=== PATIENT | female | born 1995 | race African-American/Black ===

== ENCOUNTER 2016-11-06 17:10 | Emergency (ER) | payer MEDICAID ==
[2016-11-06 17:21] VITALS: BP 131/84
--- NOTE | 2016-11-06 17:39 | EDM.PDOC ---
ED HPI GENERAL MEDICAL PROBLEM - General Chief Complaint: Upper Extremity Injury/Pain Stated Complaint: RIGHT HAND UNABLE TO MOVE IT Time Seen by Provider: 11/06/16 17:29 Source of Information: Reports: Patient History Limitations: Reports: No Limitations - History of Present Illness INITIAL COMMENTS - FREE TEXT/NARRATIVE: 21-year-old female presents for evaluation and treatment of injury to the right thumb. Patient reports prior to arrival in the ER she was wrestling. She states that the gentleman she was wrestling with accidentally hit her thumb and she heard a pop. She states since then she's had extreme pain in the right thumb with swelling at the base of the thumb. She is unable to move the thumb due to pain. She has tried Tylenol at home but continues to have pain and discomfort. Patient is right-handed. Onset: Today Location: Reports: Upper Extremity, Right Right Hand Pain Score (Numeric/FACES): 9 - Related Data Allergies Allergy/AdvReac Type Severity Reaction Status Date / Time No Known Allergies Allergy Verified 04/19/16 14:31 Home Meds: Home Meds . 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 History: Dermatologic History: Reports: Other (See Below) Other Dermatologic History: cyst to groin - Past Surgical History Female Surgical History: Reports: Other (See Below) Other Female Surgeries/Procedures: at age 14 Social & Family History - Tobacco Use Smoking Status *Q: Current Every Day Smoker Years of Tobacco use: 3 Packs/Tins Daily: 0.5 - Caffeine Use Caffeine Use: Reports: Energy Drinks, Soda, Tea - Recreational Drug Use Recreational Drug Use: No - Living Situation & Occupation Living situation: Reports: Single, Alone Occupation: Employed Review of Systems - Review of Systems Review Of Systems: See Below Musculoskeletal: Reports: Hand Pain (right thumb), Joint Swelling (right MCP joint), Other (decreased ROM to the right thumb) Skin: Denies: Wound Trauma Exam - Physical Exam Exam: See Below Exam Limited By: No Limitations General Appearance: Reports: Alert, WD/WN, No Apparent Distress Respiratory Exam: Reports: No Respiratory Distress Cardiovascular: Reports: Normal Peripheral Pulses (2+ radial pulses biltarally) , Regular Rate, Rhythm Extremities: Pain with Movement (unable to test ROM due to pain to the right thumb; able to oppose fingers to thumb but has significant pain), Tenderness ( right 1st metacarpal), Other (swelling to the right thumb base) Neurologic: Reports: Alert, Normal Mood/Affect Skin: Reports: Normal Color, Warm/Dry ED TRAUMA EXTREMITY PROCEDURES - Splinting Right Upper Extremity Splint site: right hand and wrist Pre-procedure NV status: normal Post-procedure NV status: normal Splint material: other (orthoglass) Splint design: thumb spica Applied & form fitted by: provider, nurse Provider post-splint application NV check: NV status normal, good position Complications: No Course - Vital Signs Last Recorded V/S: Last Vital Signs Temp 36.8 C 11/06/16 17:19 Pulse 90 11/06/16 17:19 Resp 20 11/06/16 17:19 BP 131/84 11/06/16 17:19 Pulse Ox 100 11/06/16 17:19 - Orders/Labs/Meds Orders: Active Orders 24 hr Category Date Time Status Hand Comp Min 3V Rt [CR] Stat Exams 11/06/16 17:34 Taken - Radiology Interpretation Free Text/Narrative:: xray of the right hand shows ano acute fractures or dislocations. - Re-Assessments/Exams Free Text/Narrative Re-Assessment/Exam: 11/06/16 18:13 I discussed x-ray results with the patient. I feel she likely has a gamekeeper' s thumb. We will put her in thumb spica splint. Discharge instructions as documented. Departure - Departure Time of Disposition: 18:22 Disposition: Home, Self-Care 01 Condition: fair Clinical Impression: Gamekeeper's thumb of right hand - Discharge Information Instructions: Ulnar Collateral Ligament Injury of the Thumb Referrals: PCP,None [Primary Care Provider] - Blaise Flores MD [Physician] - Cristina Hare PA-C [Physician Wet Roller] - Forms: ED Department Discharge Additional Instructions: Wear the splint at all times. Cover when in the shower or exposed to water with plastic bag or seran wrap. [id number] ibuprofen 600 mg every 6 to 8 hours as needed for pain and swelling. Ice the area, even over the splint, for about 30 minutes 3 or 4 times a day. Follow-up with Orthopedics in one to [address] Blanca. Please call [phone] to schedule with him. For your general medical care I recommend family practice. I recommend Brit Guallpa. Please call [phone] to schedule with her. Please return to the ER should your symptoms change or worsen. - My Orders Last 24 Hours: My Active Orders 11/06/16 17:34 Hand Comp Min 3V Rt [CR] Stat - Assessment/Plan Last 24 Hours: My Active Orders 11/06/16 17:34 Hand Comp Min 3V Rt [CR] Stat
--- NOTE | 2016-11-08 08:18 | CR ---
Right hand: Four views of the right hand were obtained. Comparison: No previous hand study. Joint spaces are maintained. No fracture, dislocation or other bony abnormality is seen. Impression: 1. No abnormality is identified on right hand exam. Diagnostic code #1
== END 2016-11-06 18:40 | disposition home or self-care (01) ==
LOC: JD.ED 17:10
DX: S63.641A Sprain of metacarpophalangeal joint of right thumb, initial encounter (principal); F17.210 Nicotine dependence, cigarettes, uncomplicated; W22.8XXA Striking against or struck by other objects, initial encounter; Y93.72 Activity, wrestling
CPT/HCPCS: 29125; 73130-26-RT; 73130-RT; 99283; 99283-25

== ENCOUNTER 2016-12-08 15:18 | Emergency (ER) | payer MEDICAID ==
[2016-12-08 15:49] VITALS: BP 133/86
[2016-12-08] MEDS ORDERED: Sodium Chloride 0.9% 10 ML Syringe FLUSH PRN (16:15)
[2016-12-08] MEDS ORDERED: Ketorolac 30 MG/ML SDV IVPUSH ONE (16:15)
[2016-12-08] MEDS ORDERED: Sodium Chloride 0.9% 1,000 ML IV ONE (16:15)
--- NOTE | 2016-12-08 16:17 | EDM.PDOC ---
ED HPI GENERAL MEDICAL PROBLEM - General Chief Complaint: Flank Pain Stated Complaint: R SIDE ABDOMINAL PAIN Time Seen by Provider: 12/08/16 16:00 Source of Information: Reports: Patient History Limitations: Reports: No Limitations - History of Present Illness INITIAL COMMENTS - FREE TEXT/NARRATIVE: 21-year-old female presents for evaluation treatment of right-sided flank pain. Patient reports that the flank pain started 3 days ago. She states that is progressively gotten worse. Patient reports at its worst the pain as a 10 out of 10. She reports associated symptoms of the decreased appetite, fatigue and one episode of emesis. Patient states that she tried tramadol and ibuprofen without any symptom relief. She denies any fevers, nausea, dysuria, hematuria, melena or hematochezia. She reports that her last bowel movement was today. She started her menstrual cycle yesterday. Patient reports that she has a history of kidney stones and kidney infection. Last kidney stone was about 2 years ago. 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 History: Dermatologic History: Reports: Other (See Below) Other Dermatologic History: cyst to groin - Past Surgical History Female Surgical History: Reports: Other (See Below) Other Female Surgeries/Procedures: at age 14 Social & Family History - Tobacco Use Smoking Status *Q: Current Every Day Smoker Years of Tobacco use: 3 Packs/Tins Daily: 0.5 - Caffeine Use Caffeine Use: Reports: Coffee, Energy Drinks, Soda, Tea - Recreational Drug Use Recreational Drug Use: No - Living Situation & Occupation Living situation: Reports: Single, Alone Occupation: Employed ED ROS GENERAL - Review of Systems Review Of Systems: See Below Constitutional: Reports: Fatigue, Decreased Appetite. Denies: Fever GI/Abdominal: Denies: Abdominal Pain, Nausea : Reports: Flank Pain (right), Other (currently on menstrual cycle). Denies: Dysuria, Hematuria ED EXAM, RENAL/ - Physical Exam Exam: See Below Exam Limited By: No Limitations General Appearance: Alert, WD/WN, No Apparent Distress Respiratory/Chest: No Respiratory Distress, Lungs Clear, Normal Breath Sounds Cardiovascular: Normal Peripheral Pulses, Regular Rate, Rhythm, No Murmur GI/Abdominal: Normal Bowel Sounds, Soft, Non-Tender Back Exam: Normal Inspection, CVA Tenderness (R). No: CVA Tenderness (L) Neurological: Alert, Oriented, Normal Cognition Psychiatric: Normal Affect, Normal Mood Skin Exam: Warm, Dry, Normal Color Course - Vital Signs Last Recorded V/S: Last Vital Signs Temp 37.0 C 12/08/16 15:48 Pulse 88 12/08/16 15:48 Resp 20 12/08/16 15:48 BP 133/86 12/08/16 15:48 Pulse Ox 100 12/08/16 15:48 - Orders/Labs/Meds Orders: Active Orders 24 hr Category Date Time Status Peripheral IV Care [RC] . DIRECTED Care 12/08/16 16:15 Active Peripheral IV Insertion Adult [OM.PC] Routine Oth 12/08/16 16:15 Ordered Labs: Laboratory Tests 12/08/16 12/08/16 12/08/16 Range/Units 16:05 16:05 16:53 WBC 5.38 (3.98-10.04) K/mm3 RBC 4.39 (3.98-5.22) M/mm3 Hgb 13.2 (11.2-15.7) gm/L Hct 39.4 (34.1-44.9) % MCV 89.7 (79.4-94.8) fl MCH 30.1 (25.6-32.2) pg MCHC 33.5 (32.2-35.5) g/dl RDW Std Deviation 41.8 (36.4-46.3) fL Plt Count 292 (182-369) K/mm3 MPV 9.4 (9.4-12.3) fl Neutrophils % (Manual) 49 (40-60) % Band Neutrophils % 0 (0-10) % Lymphocytes % (Manual) 41 H (20-40) % Atypical Lymphs % 0 % Monocytes % (Manual) 4 (2-10) % Eosinophils % (Manual) 5 (0.7-5.8) % Basophils % (Manual) 1 (0.1-1.2) Platelet Estimate Adequate RBC Morph Comment Normal Sodium (136-145) mEq/L Potassium (3.5-5.1) mEq/L Chloride (98-107) mEq/L Carbon Dioxide (21-32) mEq/L Anion Gap (5-15) BUN (7-18) mg/dL Creatinine (0.55-1.02) mg/dL Est Cr Clr Drug Dosing Estimated GFR (MDRD) (>60) mL/min BUN/Creatinine Ratio (14-18) Glucose (74-106) mg/dL Calcium (8.5-10.1) mg/dL Total Bilirubin (0.2-1.0) mg/dL AST (15-37) U/L ALT (14-59) U/L Alkaline Phosphatase (46-116) U/L C-Reactive Protein (<1.0) mg/dL Total Protein (6.4-8.2) g/dl Albumin (3.4-5.0) g/dl Globulin gm/dL Albumin/Globulin Ratio (1-2) Urine Color Yellow (Yellow) Urine Appearance Clear (Clear) Urine pH 6.0 (5.0-8.0) Ur Specific Browns > or = 1.030 (1.005-1.030) Urine Protein Trace H (Negative) Urine Glucose (UA) Negative (Negative) Urine Ketones Negative (Negative) Urine Occult Blood 1+ H (Negative) Urine Nitrite Negative (Negative) Urine Bilirubin Negative (Negative) Urine Urobilinogen 0.2 (0.2-1.0) Ur Leukocyte Esterase Negative (Negative) Urine RBC 5-10 H (0-5) /hpf Urine WBC 0-5 (0-5) /hpf Ur Epithelial Cells 0-5 (0-5) /hpf Urine Bacteria Few (FEW) /hpf Urine Mucus Few (FEW) /hpf Urine HCG, Qual Negative (NEGATIVE) 12/08/16 Range/Units 16:53 WBC (3.98-10.04) K/mm3 RBC (3.98-5.22) M/mm3 Hgb (11.2-15.7) gm/L Hct (34.1-44.9) % MCV (79.4-94.8) fl MCH (25.6-32.2) pg MCHC (32.2-35.5) g/dl RDW Std Deviation (36.4-46.3) fL Plt Count (182-369) K/mm3 MPV (9.4-12.3) fl Neutrophils % (Manual) (40-60) % Band Neutrophils % (0-10) % Lymphocytes % (Manual) (20-40) % Atypical Lymphs % % Monocytes % (Manual) (2-10) % Eosinophils % (Manual) (0.7-5.8) % Basophils % (Manual) (0.1-1.2) Platelet Estimate RBC Morph Comment Sodium 142 (136-145) mEq/L Potassium 3.6 (3.5-5.1) mEq/L Chloride 105 (98-107) mEq/L Carbon Dioxide 26 (21-32) mEq/L Anion Gap 14.6 (5-15) BUN 9 (7-18) mg/dL Creatinine 0.8 (0.55-1.02) mg/dL Est Cr Clr Drug Dosing TNP Estimated GFR (MDRD) > 60 (>60) mL/min BUN/Creatinine Ratio 11.3 L (14-18) Glucose 96 (74-106) mg/dL Calcium 8.7 (8.5-10.1) mg/dL Total Bilirubin 0.3 (0.2-1.0) mg/dL AST 16 (15-37) U/L ALT 17 (14-59) U/L Alkaline Phosphatase 64 (46-116) U/L C-Reactive Protein < 0.2 (<1.0) mg/dL Total Protein 7.0 (6.4-8.2) g/dl Albumin 3.6 (3.4-5.0) g/dl Globulin 3.4 gm/dL Albumin/Globulin Ratio 1.1 (1-2) Urine Color (Yellow) Urine Appearance (Clear) Urine pH (5.0-8.0) Ur Specific Browns (1.005-1.030) Urine Protein (Negative) Urine Glucose (UA) (Negative) Urine Ketones (Negative) Urine Occult Blood (Negative) Urine Nitrite (Negative) Urine Bilirubin (Negative) Urine Urobilinogen (0.2-1.0) Ur Leukocyte Esterase (Negative) Urine RBC (0-5) /hpf Urine WBC (0-5) /hpf Ur Epithelial Cells (0-5) /hpf Urine Bacteria (FEW) /hpf Urine Mucus (FEW) /hpf Urine HCG, Qual (NEGATIVE) Meds: Medications Discontinued Medications Generic Name Dose Route Start Last Admin Trade Name Markq PRN Reason Stop Dose Admin Sodium Chloride 1,000 mls @ 999 mls/hr 12/08/16 16:15 12/08/16 16:40 Normal Saline IV 12/08/16 17:15 999 mls/hr ONETIME ONE Administration Ketorolac Tromethamine 30 mg 12/08/16 16:15 12/08/16 16:41 Toradol IVPUSH 12/08/16 16:16 30 mg ONETIME ONE Administration Sodium Chloride 10 ml 12/08/16 16:15 12/08/16 16:30 Saline Flush FLUSH 10 ml ASDIRECTED PRN Administration Keep Vein Open - Radiology Interpretation Free Text/Narrative:: CT of the pelvis without contrast impression per Dr. Carty 1. 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 Small nonobstructing 3 mm stone within the upper right kidney. 3. No ureteral dilation or ureteral calculi are seen. 3. Mild increased free fluid within the pelvis most likely due to nonvisualized adnexal cyst leakage/rupture. 4. Incidental scoliosis. - Re-Assessments/Exams Free Text/Narrative Re-Assessment/Exam: 12/08/16 17:34 Labs returned. White blood cell count 5.3, hemoglobin 13.2 and platelets are 292. Sodium 142, potassium 3.6 and chloride 105. Anion gap is 14.6. CRP is less than 0.2. Ua has 1+ blood and trace protein. Negative for leukocytes and nitrates. I discussed the lab results with the patient. I feel we should obtain a CT of the abdomen and pelvis to rule out stones as she has a history of stones and no signs of urinary tract infection today. She agrees to this. Reports good pain relief with the IV Toradol. 12/08/16 19:00 HCG is negative. I reviewed the CT results with the patient. Likely has ruptured ovarian cyst. Will discharge home at this time. Discharge instructions as documented. Departure - Departure Time of Disposition: 19:00 Disposition: Home, Self-Care 01 Condition: Fair Clinical Impression: Ovarian cyst - Discharge Information Prescriptions: Acetaminophen/oxyCODONE [Percocet 325-5 MG] 1 tab PO Q6H PRN #20 tablet PRN Reason: Pain Instructions: Ovarian Cyst Referrals: PCP,None [Primary Care Provider] - Guille Ortiz MD [Physician] - Forms: ED Department Discharge Additional Instructions: Take the Percocet 1 tab every 4-6 hours as needed for severe pain not relieved by [id number] ibuprofen. Percocet can be habit-forming, I recommend you take as few as needed to control her pain. Do not drive or operate machinery within 12 hours of taking the Percocet. Do not take more than 3200 mg of ibuprofen and 1 day. Do not take more than 4 g of Tylenol from all sources in 1 day. Follow-up with OB this week or early next week. Recommend Dr. Ortiz. Please call [phone] ortiz. Please return to the ER if your symptoms change or worsen. - My Orders Last 24 Hours: My Active Orders 12/08/16 16:15 Peripheral IV Care [RC] . DIRECTED Peripheral IV Insertion Adult [OM.PC] Routine - Assessment/Plan Last 24 Hours: My Active Orders 12/08/16 16:15 Peripheral IV Care [RC] . DIRECTED Peripheral IV Insertion Adult [OM.PC] Routine
--- NOTE | 2016-12-08 18:36 | CT ---
CT abdomen and pelvis Technique: Multiple axial sections were obtained from above the dome of the diaphragm inferiorly through the pubic symphysis. Intravenous and oral contrast not utilized. Study has been performed as a ureteral stone protocol. Comparison: No previous pelvic CT exam. Findings: Small nonobstructing stone measuring about 3 mm is seen within the upper right kidney. Vague increased density is seen within the renal pyramids suspicious for early medullary sponge kidney. No ureteral dilatation or ureteral stone is seen. Small amount of increased free fluid is seen within the pelvis possibly due to nonvisualized adnexal cyst leakage/rupture. Visualized lung bases are clear. Noncontrast appearance of the liver and spleen appears within normal limits. Adrenal glands show no nodule. Pancreas appears within normal limits. Aorta shows no aneurysmal dilatation. No retroperitoneal adenopathy or mesenteric abnormalities are seen. No pelvic mass or adenopathy is seen. No bowel dilatation is seen. Appendix is felt to be seen and appears normal in size. Mild scoliosis is present within the spine. Bone window settings are otherwise within normal limits for the patient's age. Impression: 1. 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 Small nonobstructing 3 mm stone within the upper right kidney. 2. No ureteral dilatation or ureteral calculi are seen. 3. Mild increased free fluid within the pelvis most likely due to nonvisualized adnexal cyst leakage/rupture. 4. Incidental scoliosis. Diagnostic code #3
== END 2016-12-08 19:37 | disposition home or self-care (01) ==
LOC: JD.ED 15:18
DX: N83.209 Unspecified ovarian cyst, unspecified side (principal); F17.210 Nicotine dependence, cigarettes, uncomplicated
CPT/HCPCS: 36415; 74176; 80053; 81001; 81025; 85025; 86140; 96361; 96374; 99284; J1885; J7040; J7050

== ENCOUNTER 2016-12-20 10:58 | Emergency (ER) | payer MEDICAID ==
[2016-12-20] MEDS ORDERED: Ondansetron 4 MG Tab.DIS PO ONE (11:26)
[2016-12-20] MEDS ORDERED: Ketorolac 60 MG/2 ML SDV IM ONE (11:26)
--- NOTE | 2016-12-20 11:30 | EDM.PDOC ---
ED HPI GENERAL MEDICAL PROBLEM - General Chief Complaint: Abdominal Pain Stated Complaint: Abdominal pain Time Seen by Provider: 12/20/16 11:15 Source of Information: Reports: Patient, Old Records, RN Notes Reviewed History Limitations: Reports: No Limitations - History of Present Illness INITIAL COMMENTS - FREE TEXT/NARRATIVE: 21 year old female presents to the ED with RLQ abdominal pain. The pain is intermittent but severe at times. The pain is localized. She reports nausea with vomiting x5 last evening. She has a decreased appetite. No diarrhea or constipation. No fever but reports chills and sweats. She feels lightheaded at times. Her LMP was last week but is requesting test. She denies urinary symptoms, flank or back pain. She was evaluated in the ED last week for this same complaint. She had a CT of the abdomen/pelvis revealing a non- obstructing kidney stone with no ureteral dilatation or hydronephrosis. She had "mild increased free fluid within the pelvis most likely due to nonvisualized adnexal cyst leakage/rupture." Appendix was visualized with no signs of appendicitis. The patient reports that her symptoms are the same as they were last week. Treatments PIER MASTER: Reports: Other (see below) Other Treatments PIER MASTER: motrin and tramadol Right Abdomen Pain Score (Numeric/FACES): 10 - Related Data Allergies Allergy/AdvReac Type Severity Reaction Status Date / Time No Known Allergies Allergy Verified 04/19/16 14:31 Home Meds: Home Meds Acetaminophen/oxyCODONE [Percocet 325-5 MG] 1 tab PO Q6H PRN #20 tablet [Rx] oxyCODONE HCl/Acetaminophen [Oxycodone-Acetaminophen 5-325] 1 each PO Q4H PRN # 20 tablet 12/20/16 [Rx] Past Medical History - Past Health History Medical/Surgical History: Denies Medical/Surgical History Genitourinary History: Reports: Renal Calculus 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 History: Dermatologic History: Reports: Other (See Below) Other Dermatologic History: cyst to groin - Past Surgical History Female Surgical History: Reports: Other (See Below) Other Female Surgeries/Procedures: at age 14 Social & Family History - Tobacco Use Smoking Status *Q: Current Every Day Smoker Years of Tobacco use: 3 Packs/Tins Daily: 0.5 - Caffeine Use Caffeine Use: Reports: Coffee, Energy Drinks, Soda, Tea - Recreational Drug Use Recreational Drug Use: No - Living Situation & Occupation Living situation: Reports: Single, Alone Occupation: Employed ED ROS GENERAL - Review of Systems Review Of Systems: See Below Constitutional: Reports: Chills, Diaphoresis. Denies: Fever Respiratory: Reports: No Symptoms. Denies: Shortness of Breath Cardiovascular: Reports: No Symptoms. Denies: Chest Pain GI/Abdominal: Reports: Abdominal Pain, Decreased Appetite, Nausea, Vomiting. Denies: Constipation, Diarrhea : Reports: No Symptoms. Denies: Dysuria, Flank Pain, Frequency, Urgency ED EXAM, GI/ABD - Physical Exam Exam: See Below Exam Limited By: No Limitations General Appearance: Alert, WD/WN, No Apparent Distress, Anxious Respiratory/Chest: No Respiratory Distress, Lungs Clear, Normal Breath Sounds Cardiovascular: Regular Rate, Rhythm GI/Abdominal: Normal Bowel Sounds, Soft, No Organomegaly, No Distention, Tenderness (mild tenderness RLQ, no peritoneal inflammation signs ). No: Guarding, Rebound, Rigidity, McBurney's Sign, Rovsing's Sign Back Exam: Normal Inspection, Full Range of Motion. No: CVA Tenderness (L), CVA Tenderness (R) Course - Vital Signs Last Recorded V/S: Last Vital Signs Temp 97.6 F 12/20/16 11:14 Pulse 81 12/20/16 11:14 Resp 20 12/20/16 11:14 BP 129/90 12/20/16 11:14 Pulse Ox 98 12/20/16 11:14 - Orders/Labs/Meds Labs: Laboratory Tests 12/20/16 12/20/16 12/20/16 Range/Units 11:30 11:30 11:37 WBC 4.75 (3.98-10.04) K/mm3 RBC 4.65 (3.98-5.22) M/mm3 Hgb 13.8 (11.2-15.7) gm/L Hct 41.5 (34.1-44.9) % MCV 89.2 (79.4-94.8) fl MCH 29.7 (25.6-32.2) pg MCHC 33.3 (32.2-35.5) g/dl RDW Std Deviation 43.3 (36.4-46.3) fL Plt Count 295 (182-369) K/mm3 MPV 9.1 L (9.4-12.3) fl Neut % (Auto) 46.5 (34.0-71.1) % Lymph % (Auto) 39.6 (19.3-51.7) % [place] % (Auto) 9.9 (4.7-12.5) % Eos % (Auto) 3.2 (0.7-5.8) Baso % (Auto) 0.6 (0.1-1.2) % Neut # (Auto) 2.21 (1.56-6.13) K/mm3 Lymph # (Auto) 1.88 (1.18-3.74) K/mm3 [place] # (Auto) 0.47 H (0.24-0.36) K/mm3 Eos # (Auto) 0.15 (0.04-0.36) K/mm3 Baso # (Auto) 0.03 (0.01-0.08) K/mm3 Sodium (136-145) mEq/L Potassium (3.5-5.1) mEq/L Chloride (98-107) mEq/L Carbon Dioxide (21-32) mEq/L Anion Gap (5-15) BUN (7-18) mg/dL Creatinine (0.55-1.02) mg/dL Est Cr Clr Drug Dosing mL/min Estimated GFR (MDRD) (>60) mL/min BUN/Creatinine Ratio (14-18) Glucose (74-106) mg/dL Calcium (8.5-10.1) mg/dL Total Bilirubin (0.2-1.0) mg/dL AST (15-37) U/L ALT (14-59) U/L Alkaline Phosphatase (46-116) U/L Total Protein (6.4-8.2) g/dl Albumin (3.4-5.0) g/dl Globulin gm/dL Albumin/Globulin Ratio (1-2) Urine Color Yellow (Yellow) Urine Appearance Clear (Clear) Urine pH 6.0 (5.0-8.0) Ur Specific [place] > or = 1.030 (1.005-1.030) Urine Protein Negative (Negative) Urine Glucose (UA) Negative (Negative) Urine Ketones Negative (Negative) Urine Occult Blood 1+ H (Negative) Urine Nitrite Negative (Negative) Urine Bilirubin Negative (Negative) Urine Urobilinogen 0.2 (0.2-1.0) Ur Leukocyte Esterase Negative (Negative) Urine RBC 10-20 H (0-5) /hpf Urine WBC 0-5 (0-5) /hpf Ur Epithelial Cells 0-5 (0-5) /hpf Amorphous Sediment Few H (NOT SEEN) /hpf Urine Bacteria Moderate H (FEW) /hpf Urine Mucus Many H (FEW) /hpf Urine HCG, Qual Negative (NEGATIVE) 12/20/16 Range/Units 11:37 WBC (3.98-10.04) K/mm3 RBC (3.98-5.22) M/mm3 Hgb (11.2-15.7) gm/L Hct (34.1-44.9) % MCV (79.4-94.8) fl MCH (25.6-32.2) pg MCHC (32.2-35.5) g/dl RDW Std Deviation (36.4-46.3) fL Plt Count (182-369) K/mm3 MPV (9.4-12.3) fl Neut % (Auto) (34.0-71.1) % Lymph % (Auto) (19.3-51.7) % [place] % (Auto) (4.7-12.5) % Eos % (Auto) (0.7-5.8) Baso % (Auto) (0.1-1.2) % Neut # (Auto) (1.56-6.13) K/mm3 Lymph # (Auto) (1.18-3.74) K/mm3 [place] # (Auto) (0.24-0.36) K/mm3 Eos # (Auto) (0.04-0.36) K/mm3 Baso # (Auto) (0.01-0.08) K/mm3 Sodium 141 (136-145) mEq/L Potassium 3.7 (3.5-5.1) mEq/L Chloride 105 (98-107) mEq/L Carbon Dioxide 27 (21-32) mEq/L Anion Gap 12.7 (5-15) BUN 13 (7-18) mg/dL Creatinine 0.8 (0.55-1.02) mg/dL Est Cr Clr Drug Dosing 90.47 mL/min Estimated GFR (MDRD) > 60 (>60) mL/min BUN/Creatinine Ratio 16.3 (14-18) Glucose 94 (74-106) mg/dL Calcium 8.7 (8.5-10.1) mg/dL Total Bilirubin 0.4 (0.2-1.0) mg/dL AST 13 L (15-37) U/L ALT 19 (14-59) U/L Alkaline Phosphatase 56 (46-116) U/L Total Protein 7.1 (6.4-8.2) g/dl Albumin 3.8 (3.4-5.0) g/dl Globulin 3.3 gm/dL Albumin/Globulin Ratio 1.2 (1-2) Urine Color (Yellow) Urine Appearance (Clear) Urine pH (5.0-8.0) Ur Specific [place] (1.005-1.030) Urine Protein (Negative) Urine Glucose (UA) (Negative) Urine Ketones (Negative) Urine Occult Blood (Negative) Urine Nitrite (Negative) Urine Bilirubin (Negative) Urine Urobilinogen (0.2-1.0) Ur Leukocyte Esterase (Negative) Urine RBC (0-5) /hpf Urine WBC (0-5) /hpf Ur Epithelial Cells (0-5) /hpf Amorphous Sediment (NOT SEEN) /hpf Urine Bacteria (FEW) /hpf Urine Mucus (FEW) /hpf Urine HCG, Qual (NEGATIVE) Meds: Medications Discontinued Medications Generic Name Dose Route Start Last Admin Trade Name Freq PRN Reason Stop Dose Admin Ketorolac Tromethamine 60 mg 12/20/16 11:26 12/20/16 12:24 Toradol IM 12/20/16 11:27 60 mg ONETIME ONE Administration Ondansetron HCl 4 mg 12/20/16 11:26 12/20/16 12:25 Zofran Odt PO 12/20/16 11:27 4 mg ONETIME ONE Administration - Re-Assessments/Exams Free Text/Narrative Re-Assessment/Exam: CBC and CMP are unremarkable. UA is negative for infection. Hcg is negative. Transvaginal ultrasound obtained and read by Dr. Cartwright, impression: 1. Incidental findings (Dominant follicle or corpus luteum cyst noted within the right ovary measuring 2.1cm. Patient educated on results. She was instructed to f/u with Dr. Osborne or Araceli Duran this week for recheck. Prescription provided for Percocet. Discharge instructions as documented. Departure - Departure Time of Disposition: 13:27 Disposition: Home, Self-Care 01 Condition: Good Clinical Impression: Ovarian cyst - Discharge Information Prescriptions: oxyCODONE HCl/Acetaminophen [Oxycodone-Acetaminophen 5-325] 1 each PO Q4H PRN # 20 tablet PRN Reason: Pain Instructions: Ovarian Cyst Referrals: PCP,None [Primary Care Provider] - Forms: ED Department Discharge Additional Instructions: Heating pad to abdomen as needed for discomfort Ibuprofen 600mg every 8 hours Percocet 1 tab every 4 hours as needed for more severe pain Follow-up with Dr. Osborne or Araceli Duran this week. Call [phone] to schedule. Return to ER if you are unable to manage your pain at home or with any new symptoms.
--- NOTE | 2016-12-20 13:40 | US ---
Pelvic ultrasound: Multiple real-time images were obtained transvaginally. Uterus is retroflexed. No myometrial abnormality is appreciated. Dominant follicle or corpus luteum cyst is noted within the right ovary measuring 2.1 cm. Ovaries otherwise are normal. Minimal cystic area is which is noted within the endometrial cavity felt to be incidental. Endometrial thickness is 7.6 cm. Minimal free fluid is weight which is seen within the cul-de-sac believed to be physiologic. Measurements: Uterus: Length 7.1 cm, AP height 4.0 cm, transverse of 4.9 cm Right ovary: 3.3 x 2.4 x 2.6 cm Left ovary: 3.0 x 1.2 x 1.6 cm Impression: 1. Incidental findings as described above. Diagnostic code #2
[2016-12-20 15:00] VITALS: BP 130/97
== END 2016-12-20 13:44 | disposition home or self-care (01) ==
LOC: JD.ED 10:58
DX: N83.201 Unspecified ovarian cyst, right side (principal); F17.210 Nicotine dependence, cigarettes, uncomplicated; Z87.442 Personal history of urinary calculi
CPT/HCPCS: 36415; 76830; 80053; 81001; 81025; 85025; 96372; 99284; A9270; J1885; 99283

== ENCOUNTER 2017-02-08 18:24 | Emergency (ER) | payer MEDICAID ==
[2017-02-08 18:33] VITALS: BP 134/74
[2017-02-08] MEDS ORDERED: Sodium Chloride 0.9% 10 ML Syringe FLUSH PRN (19:10)
[2017-02-08] MEDS ORDERED: Sodium Chloride 0.9% 1,000 ML IV ONE (19:10)
[2017-02-08] MEDS ORDERED: Ondansetron 4 MG/2 ML SDV IVPUSH ONE (19:10)
[2017-02-08] MEDS ORDERED: Pantoprazole 40 MG Vial IVPUSH ONE (19:10)
--- NOTE | 2017-02-08 19:20 | EDM.PDOC ---
ED HPI GENERAL MEDICAL PROBLEM - General Chief Complaint: Gastrointestinal Problem Stated Complaint: NAUSEA,VOMITING Time Seen by Provider: 02/08/17 18:58 Source of Information: Reports: Patient History Limitations: Reports: No Limitations - History of Present Illness INITIAL COMMENTS - FREE TEXT/NARRATIVE: Patient is a 21-year-old female who presents to the ED complaining of nausea/ vomiting, diarrhea, and mild pain to the periumbilical region. States symptoms came on approximately 3 days ago. She has not been able to keep any liquids or foods down. She states she feels very hungry. She has been utilizing [facility] [place] with relief of symptoms. States she's had diarrhea as well 6-7 episodes per day with no blood present. She denies recent antibiotics, ingestion of questionable bad food, or recent country travel. There are no recent sick exposures. She has generalized malaise. She states last month she spotted for only one day during her period. She has not had a period yet which she should have. She does not utilize control. Nor does she use condoms. She has 2 sexual partners. Denies any vaginal bleeding, abnormal discharge, history of STDs, or dysuria. In addition has been no incontinence to stool. Past medical history includes: Particular bronchitis, kidney stones Current medications none stated. Surgical history none stated history 1, para 1 - Related Data Allergies Allergy/AdvReac Type Severity Reaction Status Date / Time No Known Allergies Allergy Verified 04/19/16 14:31 Home Meds: Home Meds Doxylamine/Pyridoxine HCl [Nilda Melvin 10-10 mg Tablet] 1 each PO TID PRN #20 tablet. 02/08/17 [Rx] Past Medical History - Past Health History Medical/Surgical History: Denies Medical/Surgical History Genitourinary History: Reports: Renal Calculus [facility]TIONER History: Reports: 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 History: Dermatologic History: Reports: Other (See Below) Other Dermatologic History: cyst to groin - Past Surgical History Female Surgical History: Reports: Other (See Below) Other Female Surgeries/Procedures: at age 14 Social & Family History - Tobacco Use Smoking Status *Q: Current Every Day Smoker Years of Tobacco use: 6 Packs/Tins Daily: 1 - Caffeine Use Caffeine Use: Reports: Coffee, Soda - Recreational Drug Use Recreational Drug Use: No - Living Situation & Occupation Living situation: Reports: Single, Alone Occupation: Employed ED ROS GENERAL - Review of Systems Review Of Systems: ROS reveals no pertinent complaints other than HPI. Constitutional: Reports: Malaise, Decreased Appetite. Denies: Fever, Chills HEENT: Reports: No Symptoms Respiratory: Reports: No Symptoms Cardiovascular: Reports: No Symptoms GI/Abdominal: Reports: Diarrhea, Nausea, Vomiting. Denies: Abdominal Pain, Constipation : Denies: Discharge, Dysuria, Flank Pain, Frequency, Urgency Musculoskeletal: Reports: No Symptoms Neurological: Reports: Dizziness (intermittent) ED EXAM, GI/ABD - Physical Exam Exam: See Below Exam Limited By: No Limitations General Appearance: Alert, WD/WN, No Apparent Distress Ears: Hearing Grossly Normal Nose: Normal Inspection Throat/Mouth: Normal Inspection, Normal Oropharynx, Normal Voice, No Airway Compromise Neck: Normal Inspection, Supple, Non-Tender Respiratory/Chest: No Respiratory Distress, Lungs Clear, Normal Breath Sounds, No Accessory Muscle Use, Chest Non-Tender Cardiovascular: Normal Peripheral Pulses, Regular Rate, Rhythm, No Murmur GI/Abdominal Exam: Normal Bowel Sounds, Soft, No Organomegaly, No Distention. No: Tender (mild pain to the periumbilical area. ) Back Exam: Normal Inspection. No: CVA Tenderness (L), CVA Tenderness (R) Extremities: Normal Inspection, Non-Tender, No Pedal Edema, Normal Capillary Refill Neurological: Alert, Oriented, CN II-XII Intact, Normal Cognition, No Motor/ Sensory Deficits Course - Vital Signs Last Recorded V/S: Last Vital Signs Temp 98 F 02/08/17 18:30 Pulse 102 H 02/08/17 18:30 Resp 18 02/08/17 18:30 BP 134/74 02/08/17 18:30 Pulse Ox 99 02/08/17 18:30 - Orders/Labs/Meds Orders: Active Orders 24 hr Category Date Time Status Peripheral IV Care [RC] . DIRECTED Care 02/08/17 19:11 Inactive CULTURE URINE [RM] Stat Lab 02/08/17 22:34 Ordered Labs: Laboratory Tests 02/08/17 02/08/17 02/08/17 Range/Units 18:42 18:42 19:35 WBC 6.72 (3.98-10.04) K/mm3 RBC 4.18 (3.98-5.22) M/mm3 Hgb 12.5 (11.2-15.7) gm/L Hct 37.2 (34.1-44.9) % MCV 89.0 (79.4-94.8) fl MCH 29.9 (25.6-32.2) pg MCHC 33.6 (32.2-35.5) g/dl RDW Std Deviation 41.0 (36.4-46.3) fL Plt Count 296 (182-369) K/mm3 MPV 9.0 L (9.4-12.3) fl Neut % (Auto) 41.5 (34.0-71.1) % Lymph % (Auto) 49.3 (19.3-51.7) % [place] % (Auto) 7.0 (4.7-12.5) % Eos % (Auto) 1.5 (0.7-5.8) Baso % (Auto) 0.4 (0.1-1.2) % Neut # (Auto) 2.79 (1.56-6.13) K/mm3 Lymph # (Auto) 3.31 (1.18-3.74) K/mm3 [place] # (Auto) 0.47 H (0.24-0.36) K/mm3 Eos # (Auto) 0.10 (0.04-0.36) K/mm3 Baso # (Auto) 0.03 (0.01-0.08) K/mm3 Sodium (136-145) mEq/L Potassium (3.5-5.1) mEq/L Chloride (98-107) mEq/L Carbon Dioxide (21-32) mEq/L Anion Gap (5-15) BUN (7-18) mg/dL Creatinine (0.55-1.02) mg/dL Est Cr Clr Drug Dosing mL/min Estimated GFR (MDRD) (>60) mL/min BUN/Creatinine Ratio (14-18) Glucose (74-106) mg/dL Calcium (8.5-10.1) mg/dL Total Bilirubin (0.2-1.0) mg/dL AST (15-37) U/L ALT (14-59) U/L Alkaline Phosphatase (46-116) U/L C-Reactive Protein (<1.0) mg/dL Total Protein (6.4-8.2) g/dl Albumin (3.4-5.0) g/dl Globulin gm/dL Albumin/Globulin Ratio (1-2) Lipase (73-393) U/L Urine Color Yellow (Yellow) Urine Appearance Clear (Clear) Urine pH 7.0 (5.0-8.0) Ur Specific [place] 1.025 (1.005-1.030) Urine Protein Trace H (Negative) Urine Glucose (UA) Negative (Negative) Urine Ketones Negative (Negative) Urine Occult Blood Negative (Negative) Urine Nitrite Negative (Negative) Urine Bilirubin Negative (Negative) Urine Urobilinogen 2.0 H (0.2-1.0) Ur Leukocyte Esterase Negative (Negative) Urine RBC 0-5 (0-5) /hpf Urine WBC 0-5 (0-5) /hpf Ur Epithelial Cells 0-5 (0-5) /hpf Calcium Oxalate Crystal Few H (NONE) Amorphous Sediment Many H (NOT SEEN) /hpf Urine Bacteria Moderate H (FEW) /hpf Urine Mucus Moderate H (FEW) /hpf Urine HCG, Qual Positive (NEGATIVE) 02/08/17 Range/Units 19:35 WBC (3.98-10.04) K/mm3 RBC (3.98-5.22) M/mm3 Hgb (11.2-15.7) gm/L Hct (34.1-44.9) % MCV (79.4-94.8) fl MCH (25.6-32.2) pg MCHC (32.2-35.5) g/dl RDW Std Deviation (36.4-46.3) fL Plt Count (182-369) K/mm3 MPV (9.4-12.3) fl Neut % (Auto) (34.0-71.1) % Lymph % (Auto) (19.3-51.7) % [place] % (Auto) (4.7-12.5) % Eos % (Auto) (0.7-5.8) Baso % (Auto) (0.1-1.2) % Neut # (Auto) (1.56-6.13) K/mm3 Lymph # (Auto) (1.18-3.74) K/mm3 [place] # (Auto) (0.24-0.36) K/mm3 Eos # (Auto) (0.04-0.36) K/mm3 Baso # (Auto) (0.01-0.08) K/mm3 Sodium 140 (136-145) mEq/L Potassium 3.4 L (3.5-5.1) mEq/L Chloride 106 (98-107) mEq/L Carbon Dioxide 26 (21-32) mEq/L Anion Gap 11.4 (5-15) BUN 11 (7-18) mg/dL Creatinine 0.7 (0.55-1.02) mg/dL Est Cr Clr Drug Dosing 103.40 mL/min Estimated GFR (MDRD) > 60 (>60) mL/min BUN/Creatinine Ratio 15.7 (14-18) Glucose 86 (74-106) mg/dL Calcium 8.8 (8.5-10.1) mg/dL Total Bilirubin 0.3 (0.2-1.0) mg/dL AST 12 L (15-37) U/L ALT 17 (14-59) U/L Alkaline Phosphatase 49 (46-116) U/L C-Reactive Protein < 0.2 (<1.0) mg/dL Total Protein 6.9 (6.4-8.2) g/dl Albumin 3.8 (3.4-5.0) g/dl Globulin 3.1 gm/dL Albumin/Globulin Ratio 1.2 (1-2) Lipase 80 (73-393) U/L Urine Color (Yellow) Urine Appearance (Clear) Urine pH (5.0-8.0) Ur Specific [place] (1.005-1.030) Urine Protein (Negative) Urine Glucose (UA) (Negative) Urine Ketones (Negative) Urine Occult Blood (Negative) Urine Nitrite (Negative) Urine Bilirubin (Negative) Urine Urobilinogen (0.2-1.0) Ur Leukocyte Esterase (Negative) Urine RBC (0-5) /hpf Urine WBC (0-5) /hpf Ur Epithelial Cells (0-5) /hpf Calcium Oxalate Crystal (NONE) Amorphous Sediment (NOT SEEN) /hpf Urine Bacteria (FEW) /hpf Urine Mucus (FEW) /hpf Urine HCG, Qual (NEGATIVE) Meds: Medications Discontinued Medications Generic Name Dose Route Start Last Admin Trade Name Freq PRN Reason Stop Dose Admin Sodium Chloride 1,000 mls @ 999 mls/hr 02/08/17 19:10 Normal Saline IV 02/08/17 20:10 ONETIME ONE Ondansetron HCl 4 mg 02/08/17 19:10 Zofran IVPUSH 02/08/17 19:11 ONETIME ONE Pantoprazole Sodium 40 mg 02/08/17 19:10 Protonix Iv IVPUSH 02/08/17 19:11 ONETIME ONE Sodium Chloride 10 ml 02/08/17 19:10 Saline Flush FLUSH ASDIRECTED PRN Keep Vein Open - Re-Assessments/Exams Free Text/Narrative Re-Assessment/Exam: Order peripheral IV with normal saline 999 mL/hour, Protonix 40 mg IVP, Zofran 4 mg IVP. Initial labs and studies include CBC, chem 14, CRP, hCG, lipase, UA, and stool WBCs. Patient refused all medications. 1941 HCG was positive. Awaiting results of UA and labs. Patient is wishing to leave prior to results. 02/08/17 20:22 Labs reviewed: CBC essentially normal. Potassium 3.4, sodium 140 , creatinine 0.7, CRP less than 0 point 0.2, and lipase 80. UA positive trace protein, urobilinogen 2.0, calcium oxalate crystal few, amorphous sediment many , urine bacteria moderate, and mucus moderate. Contraminated urine. Patient discharged home with instructions as documented. Departure - Departure Time of Disposition: 20:22 Disposition: Home, Self-Care 01 Condition: Good Clinical Impression: Qualifiers: Weeks of gestation: unspecified Qualified Code(s): Z34.90 - Encounter for supervision of normal , unspecified, unspecified trimester - Discharge Information Prescriptions: Doxylamine/Pyridoxine HCl [Nilda Melvin 10-10 mg Tablet] 1 each PO TID PRN #20 tablet.dr CONRAD Reason: Nausea/Vomiting Instructions: First Trimester of , [id number] Referrals: Clifford Allen MD [Physician] - Forms: ED Department Discharge Additional Instructions: HCG was positive indicating you are . Please follow up with a [facility]TIONER of your choice for evaluation within the next week. Start taking vitamins. Eat adequate diet. Drink plenty of fluids. Refrain from alcohol use, smoking, or recreational drugs. Return to the E.D. for any new or worsening symptoms. For nausea take diclegis as prescribed. - My Orders Last 24 Hours: My Active Orders 02/08/17 19:11 Peripheral IV Care [RC] . DIRECTED 02/08/17 22:34 CULTURE URINE [] Stat - Assessment/Plan Last 24 Hours: My Active Orders 02/08/17 19:11 Peripheral IV Care [RC] . DIRECTED 02/08/17 22:34 CULTURE URINE [RM] Stat
== END 2017-02-08 20:34 | disposition home or self-care (01) ==
LOC: JD.ED 18:24
DX: Z34.90 Encounter for supervision of normal pregnancy, unspecified, unspecified trimester (principal); F17.210 Nicotine dependence, cigarettes, uncomplicated
CPT/HCPCS: 36415; 80053; 81001; 81025; 83690; 85025; 86140; 87086; 99283; 99284

== ENCOUNTER 2017-03-12 13:20 | Emergency (ER) | payer MEDICAID ==
[2017-03-12] MEDS ORDERED: Sodium Chloride 0.9% 1,000 ML IV STA (13:52)
[2017-03-12] MEDS ORDERED: Sodium Chloride 0.9% 10 ML Syringe FLUSH PRN (13:52)
--- NOTE | 2017-03-12 14:12 | EDM.PDOC ---
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 She is about 10 weeks according to the patient. Her LNMP was in December. Her due date is October 15. She is and AB1. She is 9 weeks according to the wheel. The bleeding started this morning. She has no clots. She has no cramping or back pain. She has no dysuria or diarrhea. She has no fever, chills, cough, congestion, runny nose, chest pain, abdominal pain, nausea or vomiting. Onset: Gradual Duration: Hour(s): (Started this morning) Severity: Moderate Improves with: Reports: None Worsens with: Reports: None Associated Symptoms: Reports: No Other Symptoms - Related Data Allergies Allergy/AdvReac Type Severity Reaction Status Date / Time No Known Allergies Allergy Verified 04/19/16 14:31 Home Meds: Home Meds . 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 History: Dermatologic History: Reports: Other (See Below) Other Dermatologic History: cyst to groin - Past Surgical History Female Surgical History: Reports: Other (See Below) Other Female Surgeries/Procedures: at age 14 Social & Family History - Tobacco Use Smoking Status *Q: Current Every Day Smoker Years of Tobacco use: 6 Packs/Tins Daily: 0.1 - Caffeine Use Caffeine Use: Reports: Soda, Tea - Recreational Drug Use Recreational Drug Use: No - Living Situation & Occupation Living situation: Reports: Single, Alone Occupation: Employed ED ROS GENERAL - Review of Systems Review Of Systems: See Below Constitutional: Reports: No Symptoms HEENT: Reports: No Symptoms Respiratory: Reports: No Symptoms Cardiovascular: Reports: No Symptoms Endocrine: Reports: No Symptoms GI/Abdominal: Reports: No Symptoms : Reports: Other (Vaginal bleeding). Denies: Discharge, Dysuria ED EXAM - Physical Exam Exam: See Below Exam Limited By: No Limitations General Appearance: Alert, No Apparent Distress Ears: Normal External Exam Nose: Normal Inspection Head: Atraumatic, Normocephalic Neck: Normal Inspection Respiratory/Chest: No Respiratory Distress, Lungs Clear, Normal Breath Sounds Cardiovascular: Regular Rate, Rhythm, No Edema, No Murmur GI/Abdominal Exam: Soft, Non-Tender, No Organomegaly, No Mass (Female) Exam: Other (Cervical os is closed and there is some dark blood) Extremities: Normal Inspection Neurological: Alert, Oriented, No Motor/Sensory Deficits Course - Vital Signs Last Recorded V/S: Last Vital Signs Temp 97.8 F 03/12/17 13:40 Pulse 84 03/12/17 13:40 Resp 20 03/12/17 13:40 BP 128/73 03/12/17 13:40 Pulse Ox 100 03/12/17 13:40 - Orders/Labs/Meds Orders: Active Orders 24 hr Category Date Time Status Pelvic Exam, Set Up [RC] ASDIRECTED Care 03/12/17 13:55 Active Peripheral IV Care [RC] . DIRECTED Care 03/12/17 13:53 Active Sodium Chloride 0.9% [Saline Flush] Med 03/12/17 13:52 Active 10 ml FLUSH ASDIRECTED PRN Peripheral IV Insertion Adult [OM.PC] Stat Oth 03/12/17 13:52 Ordered Medication Orders Sodium Chloride (Saline Flush) 10 ml FLUSH ASDIRECTED PRN PRN Reason: Keep Vein Open Last Admin: 03/12/17 14:25 Dose: 10 ml Labs: Laboratory Tests 03/12/17 03/12/17 03/12/17 Range/Units 14:25 14:25 14:25 WBC 5.77 (3.98-10.04) K/mm3 RBC 3.99 (3.98-5.22) M/mm3 Hgb 11.9 (11.2-15.7) gm/L Hct 35.2 (34.1-44.9) % MCV 88.2 (79.4-94.8) fl MCH 29.8 (25.6-32.2) pg MCHC 33.8 (32.2-35.5) g/dl RDW Std Deviation 39.1 (36.4-46.3) fL Plt Count 267 (182-369) K/mm3 MPV 9.2 L (9.4-12.3) fl Neut % (Auto) 51.3 (34.0-71.1) % Lymph % (Auto) 37.4 (19.3-51.7) % [place] % (Auto) 9.4 (4.7-12.5) % Eos % (Auto) 1.4 (0.7-5.8) Baso % (Auto) 0.3 (0.1-1.2) % Neut # (Auto) 2.96 (1.56-6.13) K/mm3 Lymph # (Auto) 2.16 (1.18-3.74) K/mm3 [place] # (Auto) 0.54 H (0.24-0.36) K/mm3 Eos # (Auto) 0.08 (0.04-0.36) K/mm3 Baso # (Auto) 0.02 (0.01-0.08) K/mm3 Sodium 141 (136-145) mEq/L Potassium 3.4 L (3.5-5.1) mEq/L Chloride 107 (98-107) mEq/L Carbon Dioxide 27 (21-32) mEq/L Anion Gap 10.4 (5-15) BUN 9 (7-18) mg/dL Creatinine 0.7 (0.55-1.02) mg/dL Est Cr Clr Drug Dosing 94.32 mL/min Estimated GFR (MDRD) > 60 (>60) mL/min BUN/Creatinine Ratio 12.9 L (14-18) Glucose 81 (74-106) mg/dL Calcium 8.9 (8.5-10.1) mg/dL Total Bilirubin 0.1 L (0.2-1.0) mg/dL AST 10 L (15-37) U/L ALT 13 L (14-59) U/L Alkaline Phosphatase 52 (46-116) U/L Total Protein 6.6 (6.4-8.2) g/dl Albumin 3.3 L (3.4-5.0) g/dl Globulin 3.3 gm/dL Albumin/Globulin Ratio 1.0 (1-2) HCG, Quant 15406.0 mIU/mL Urine Color (Yellow) Urine Appearance (Clear) Urine pH (5.0-8.0) Ur Specific [place] (1.005-1.030) Urine Protein (Negative) Urine Glucose (UA) (Negative) Urine Ketones (Negative) Urine Occult Blood (Negative) Urine Nitrite (Negative) Urine Bilirubin (Negative) Urine Urobilinogen (0.2-1.0) Ur Leukocyte Esterase (Negative) Urine RBC (0-5) /hpf Urine WBC (0-5) /hpf Ur Epithelial Cells (0-5) /hpf Urine Bacteria (FEW) /hpf Urine Mucus (FEW) /hpf Blood Type 03/12/17 03/12/17 Range/Units 14:25 14:35 WBC (3.98-10.04) K/mm3 RBC (3.98-5.22) M/mm3 Hgb (11.2-15.7) gm/L Hct (34.1-44.9) % MCV (79.4-94.8) fl MCH (25.6-32.2) pg MCHC (32.2-35.5) g/dl RDW Std Deviation (36.4-46.3) fL Plt Count (182-369) K/mm3 MPV (9.4-12.3) fl Neut % (Auto) (34.0-71.1) % Lymph % (Auto) (19.3-51.7) % [place] % (Auto) (4.7-12.5) % Eos % (Auto) (0.7-5.8) Baso % (Auto) (0.1-1.2) % Neut # (Auto) (1.56-6.13) K/mm3 Lymph # (Auto) (1.18-3.74) K/mm3 [place] # (Auto) (0.24-0.36) K/mm3 Eos # (Auto) (0.04-0.36) K/mm3 Baso # (Auto) (0.01-0.08) K/mm3 Sodium (136-145) mEq/L Potassium (3.5-5.1) mEq/L Chloride (98-107) mEq/L Carbon Dioxide (21-32) mEq/L Anion Gap (5-15) BUN (7-18) mg/dL Creatinine (0.55-1.02) mg/dL Est Cr Clr Drug Dosing mL/min Estimated GFR (MDRD) (>60) mL/min BUN/Creatinine Ratio (14-18) Glucose (74-106) mg/dL Calcium (8.5-10.1) mg/dL Total Bilirubin (0.2-1.0) mg/dL AST (15-37) U/L ALT (14-59) U/L Alkaline Phosphatase (46-116) U/L Total Protein (6.4-8.2) g/dl Albumin (3.4-5.0) g/dl Globulin gm/dL Albumin/Globulin Ratio (1-2) HCG, Quant mIU/mL Urine Color Yellow (Yellow) Urine Appearance Slt cloudy H (Clear) Urine pH 6.5 (5.0-8.0) Ur Specific [place] > or = 1.030 (1.005-1.030) Urine Protein 1+ H (Negative) Urine Glucose (UA) Negative (Negative) Urine Ketones Trace H (Negative) Urine Occult Blood 3+ H (Negative) Urine Nitrite Negative (Negative) Urine Bilirubin Negative (Negative) Urine Urobilinogen 1.0 (0.2-1.0) Ur Leukocyte Esterase Negative (Negative) Urine RBC 75-100 H (0-5) /hpf Urine WBC 0-5 (0-5) /hpf Ur Epithelial Cells 0-5 (0-5) /hpf Urine Bacteria Few (FEW) /hpf Urine Mucus Few (FEW) /hpf Blood Type O POSITIVE Meds: Medications Generic Name Dose Route Start Last Admin Trade Name Freq PRN Reason Stop Dose Admin Sodium Chloride 10 ml 03/12/17 13:52 03/12/17 14:25 Saline Flush FLUSH 10 ml ASDIRECTED PRN Administration Keep Vein Open Discontinued Medications Generic Name Dose Route Start Last Admin Trade Name Freq PRN Reason Stop Dose Admin Sodium Chloride 1,000 mls @ 1,000 mls/hr 03/12/17 13:52 03/12/17 14:34 Normal Saline IV 03/12/17 14:51 1,000 mls/hr .BOLUS STA Administration - Re-Assessments/Exams Free Text/Narrative Re-Assessment/Exam: 03/12/17 14:14 I ordered an IV NS 1L bolus, labs, UA, pelvic exam and an US. 03/12/17 16:20 Her CBC was negative. Her K was a little low at 3.4. Her AST and ALT are low. Her HCG is elevated at 83,752. Her UA shows no UTI but she does have blood. 03/12/17 16:35 She is O positive. The US shows single intrauterine gestation at 9 weeks 1 days. Incidental corpus luteum cyst within the maternal right ovary. Small amount of free fluid is seen which is believed to be physiologic. No etiology is identified for the patient's vaginal bleeding. heart rate is 182. I will have her follow up with Dr Falk. Departure - Departure Time of Disposition: 16:40 Disposition: Home, Self-Care 01 Condition: Good Clinical Impression: Vaginal bleeding in Qualifiers: Weeks of gestation: unspecified Qualified Code(s): Z34.90 - Encounter for supervision of normal , unspecified, unspecified trimester - Discharge Information Referrals: Alycia Falk MD [Primary Care Provider] - Forms: ED Department Discharge Additional Instructions: Do not lift anything heavy until you see your doctor and no intercourse until you are cleared by her. Please return if you have cramping and if your bleeding increases. - My Orders Last 24 Hours: My Active Orders 03/12/17 13:52 Sodium Chloride 0.9% [Saline Flush] 10 ml FLUSH ASDIRECTED PRN Peripheral IV Insertion Adult [OM.PC] Stat 03/12/17 13:53 Peripheral IV Care [RC] . DIRECTED 03/12/17 13:55 Pelvic Exam, Set Up [RC] ASDIRECTED - Assessment/Plan Last 24 Hours: My Active Orders 03/12/17 13:52 Sodium Chloride 0.9% [Saline Flush] 10 ml FLUSH ASDIRECTED PRN Peripheral IV Insertion Adult [OM.PC] Stat 03/12/17 13:53 Peripheral IV Care [RC] . DIRECTED 03/12/17 13:55 Pelvic Exam, Set Up [RC] ASDIRECTED
--- NOTE | 2017-03-12 16:24 | US ---
First trimester obstetrical ultrasound: Multiple real-time images were obtained transvaginally. Comparison: No previous study. Dates: LMP: ? Current ultrasound: ZARIA 10/01/1919, gestational age 9 weeks 5 days Single intrauterine gestation is seen. Embryo is identified. Yolk sac is seen. No subchorionic hemorrhage is identified. Small amount of fluid is seen within the pelvis which is likely physiologic. Small cyst is noted within the maternal right ovary which is felt compatible with corpus luteum cyst. Left ovary is unremarkable. Measurements: Gestational sac: 3.76 cm - 9 weeks 1 day Gibbs-rump length: 2.88 cm - 9 weeks 5 days Heart rate: 182 BPM Impression: 1. Single intrauterine gestation. Dates as noted above. 2. Incidental corpus luteum cyst within the maternal right ovary. Small amount of free fluid is seen which is believed to be physiologic. 3. No etiology is identified for the patient's vaginal bleeding. Diagnostic code #2
[2017-03-12 16:43] VITALS: BP 121/81
== END 2017-03-12 16:45 | disposition home or self-care (01) ==
LOC: JD.ED 13:20
DX: O20.9 Hemorrhage in early pregnancy, unspecified (principal); O99.331 Smoking (tobacco) complicating pregnancy, first trimester; F17.210 Nicotine dependence, cigarettes, uncomplicated; Z3A.10 10 weeks gestation of pregnancy
CPT/HCPCS: 36415; 76817; 80053; 81001; 84702; 85025; 86900; 86901; 96360; 99284; J7040; J7050

== ENCOUNTER 2017-08-01 09:32 | Emergency (ER) | payer MEDICAID ==
[2017-08-01 09:51] VITALS: BP 119/78
[2017-08-01] MEDS ORDERED: Lidocaine/EPINEPHrine/Tetracaine Soln 1 ML TOP ONE (10:18)
[2017-08-01] MEDS ORDERED: Lidocaine 1% with EPINEPHrine 1:100,000 20 ML MDV INJECT ONE (10:19)
--- NOTE | 2017-08-01 11:14 | EDM.PDOC ---
ED HPI GENERAL MEDICAL PROBLEM - General Chief Complaint: Skin Complaint Stated Complaint: ABSCESS Time Seen by Provider: 08/01/17 10:15 Source of Information: Reports: Patient History Limitations: Reports: No Limitations - History of Present Illness INITIAL COMMENTS - FREE TEXT/NARRATIVE: The patient presents with an abscess to the left groin. She has had one there before and had it opened up. She 1st noticed this a couple days ago and it has gotten much worse. She has a 3cm round fluctuant area to the left groin. She has no fever or chills. She is about 7 months . 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 Pain Score (Numeric/FACES): 10 - Related Data Allergies Allergy/AdvReac Type Severity Reaction Status Date / Time No Known Allergies Allergy Verified 08/01/17 09:51 Home Meds: Home Meds Cephalexin [Keflex] 500 mg PO Q8H #30 cap 08/01/17 [Rx] Past Medical History - Past Health History Medical/Surgical History: Denies Medical/Surgical History Genitourinary History: Reports: Renal Calculus 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: , 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 History: Dermatologic History: Reports: Other (See Below) Other Dermatologic History: cyst to groin - Past Surgical History Female Surgical History: Reports: Other (See Below) Other Female Surgeries/Procedures: at age 14 Social & Family History - Tobacco Use Smoking Status *Q: Never Smoker Years of Tobacco use: 6 Packs/Tins Daily: 0.1 Second Hand Smoke Exposure: No - Caffeine Use Caffeine Use: Reports: Coffee, Soda, Tea - Recreational Drug Use Recreational Drug Use: No - Living Situation & Occupation Living situation: Reports: Single, Alone Occupation: Employed ED ROS GENERAL - Review of Systems Review Of Systems: See Below Constitutional: Reports: No Symptoms HEENT: Reports: No Symptoms Respiratory: Reports: No Symptoms Cardiovascular: Reports: No Symptoms Endocrine: Reports: No Symptoms GI/Abdominal: Reports: No Symptoms : Reports: No Symptoms Musculoskeletal: Reports: Other Skin: Reports: Other (abscess left groin) Neurological: Reports: No Symptoms ED EXAM, SKIN/RASH Exam: See Below Exam Limited By: No Limitations General Appearance: Alert, No Apparent Distress Ears: Normal External Exam Nose: Normal Inspection Head: Atraumatic, Normocephalic Neck: Normal Inspection Respiratory/Chest: No Respiratory Distress Extremities: Other (3cm abscess to the left groin with 2 whit dots.) Neurological: Alert, Oriented ED SKIN PROCEDURES - I&D Site: left groin Skin Prep: Chlorhexidine (Hibiciens) Local Anesthesia: Lidocaine: 1% with EPI (and LET) Local Anesthetic Volume: 2cc Area Incised With: 11 Blade Drainage: Purulent, Bloody, Large Amount Probed to Break Up Loculations: Yes Packed With: 1/2 in. Iodoform Sterile Dressing: Adhesive Dressing Complications: No Course - Vital Signs Last Recorded V/S: Last Vital Signs Temp 96.4 F 08/01/17 09:40 Pulse 99 08/01/17 09:40 Resp 18 08/01/17 09:40 BP 119/78 08/01/17 09:40 Pulse Ox 100 08/01/17 09:40 - Orders/Labs/Meds Meds: Medications Discontinued Medications Generic Name Dose Route Start Last Admin Trade Name Roz PRN Reason Stop Dose Admin Lidocaine/Epinephrine 20 ml 08/01/17 10:19 08/01/17 10:32 Xylocaine 1% With Epinephrine 1:100,000 INJECT 08/01/17 10:20 20 ml ONETIME ONE Administration Lidocaine/Tetracaine 1 ml 08/01/17 10:18 08/01/17 10:32 Let Soln TOP 08/01/17 10:19 1 ml ONETIME ONE Administration Departure - Departure Time of Disposition: 11:15 Disposition: Home, Self-Care 01 Condition: Good Clinical Impression: Abscess - Discharge Information Prescriptions: Cephalexin [Keflex] 500 mg PO Q8H #30 cap Referrals: PCP,None [Primary Care Provider] - Yaneth Gonzalez MD [Physician] - 1 Week Additional Instructions: Put warm compresses on the abscess 3 times per day for 5 days. Wash the area with warm soapy water and apply some antibiotic ointment after. Take the keflex 3 times per day for 10 days. Follow up with your doctor in 1 week. Please return if you are worse.
== END 2017-08-01 11:30 | disposition home or self-care (01) ==
LOC: JD.ED 09:32
DX: L02.214 Cutaneous abscess of groin (principal); Z87.442 Personal history of urinary calculi
CPT/HCPCS: 10060; 87075; 87205; 99283; A9270

== ENCOUNTER 2017-09-29 12:15 | Inpatient (IN) | payer MEDICAID ==
[2017-09-29] MEDS ORDERED: Nalbuphine 20 MG/1 ML Amp IVPUSH PRN (13:05)
[2017-09-29] MEDS ORDERED: Sodium Chloride 0.9% 10 ML Syringe FLUSH PRN (13:05)
[2017-09-29] MEDS ORDERED: Ondansetron 4 MG/2 ML SDV IVPUSH PRN ×2 (13:05→13:49)
[2017-09-29] MEDS ORDERED: Ampicillin 2 GM in Sodium Chloride 0.9% 100 ML IV ONE (13:05)
[2017-09-29] MEDS ORDERED: Ampicillin 1 GM in Sodium Chloride 0.9% 100 ML IV SCH (13:15)
[2017-09-29] MEDS ORDERED: Oxytocin/Lactated Ringers 10 UNIT/1,000 ML BAG IV SCH ×2 (13:15→22:00)
[2017-09-29] MEDS ORDERED: diphenhydrAMINE 50 MG/ML SDV IVPUSH PRN (13:49)
[2017-09-29] MEDS ORDERED: fentaNYL 100 MCG/2 ML SDV EPIDUR PRN (13:49)
[2017-09-29] MEDS ORDERED: ePHEDrine 50 MG/ML SDV IVPUSH PRN (13:49)
--- NOTE | 2017-09-29 13:49 | PCM.PREANE ---
Preanesthetic Assessment - Procedure Proposed Procedure: DARWIN - Anesthesia/Transfusion/Family Hx Anesthesia History: Prior Anesthesia Without Reaction Family History of Anesthesia Reaction: No Transfusion History: No Prior Transfusion(s) Intubation History: Unknown Additional History: Patient stated she is just getting over a kidney infection from kidney stones and is currently on Keflex. - Review of Systems General: No Symptoms Pulmonary: No Symptoms Cardiovascular: No Symptoms Gastrointestinal: No Symptoms Neurological: No Symptoms Other: Reports: None - Physical Assessment NPO Status Date: 09/29/17 NPO Status Time: 12:00 Pulse: 82 O2 Sat by Pulse Oximetry: 98 Respiratory Rate: 20 Blood Pressure: 130/65 Vital Signs: Last Vital Signs Temp Pulse 82 09/29/17 13:32 Resp BP Pulse Ox Height: 1.55 m Weight: 86.183 kg ASA Class: 2 Mental Status: Alert & Oriented x3 Airway Class: Mallampati = 2 Dentition: Reports: Normal Dentition Thyro-Mental Finger Breadths: 3 Mouth Opening Finger Breadths: 3 ROM/Head Extension: Full Lungs: Clear to Auscultation, Normal Respiratory Effort Cardiovascular: Regular Rate, Regular Rhythm - Lab Values: Laboratory Last Values WBC 7.38 K/mm3 (3.98-10.04) 09/29/17 13:20 RBC 3.59 M/mm3 (3.98-5.22) L 09/29/17 13:20 Hgb 10.5 gm/L (11.2-15.7) L 09/29/17 13:20 Hct 32.1 % (34.1-44.9) L 09/29/17 13:20 MCV 89.4 fl (79.4-94.8) 09/29/17 13:20 MCH 29.2 pg (25.6-32.2) 09/29/17 13:20 MCHC 32.7 g/dl (32.2-35.5) 09/29/17 13:20 RDW Std Deviation 43.1 fL (36.4-46.3) 09/29/17 13:20 Plt Count 270 K/mm3 (182-369) 09/29/17 13:20 MPV 9.5 fl (9.4-12.3) 09/29/17 13:20 - Allergies Allergies/Adverse Reactions: Allergies Allergy/AdvReac Type Severity Reaction Status Date / Time No Known Allergies Allergy Verified 08/01/17 09:51 - Blood Blood Available: No Product(s) Available: None - Anesthesia Plan Pre-Op Medication Ordered: None - Acknowledgements Anesthesia Type Planned: Epidural Pt an Appropriate Candidate for the Planned Anesthesia: Yes Alternatives and Risks of Anesthesia Discussed w Pt/Guardian: Yes Pt/Guardian Understands and Agrees with Anesthesia Plan: Yes PreAnesthesia Questionnaire - Past Health History Medical/Surgical History: Denies Medical/Surgical History Genitourinary History: Reports: Renal Calculus 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: , 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 History: Dermatologic History: Reports: Other (See Below) Other Dermatologic History: cyst to groin - Past Surgical History Female Surgical History: Reports: Other (See Below) Other Female Surgeries/Procedures: at age 14 - SUBSTANCE USE Smoking Status *Q: Never Smoker Tobacco Use Within Last Twelve Months: Cigarettes Second Hand Smoke Exposure: No Recreational Drug Use History: No - HOME MEDS Home Medications: Home Meds Cephalexin [Keflex] 500 mg PO Q8H #30 cap 08/01/17 [Rx] - CURRENT (IN HOUSE) MEDS Current Meds: Current Medications Ampicillin Sodium 1 gm/ Sodium (Chloride) 100 mls @ 200 mls/hr IV Q4H CARRILLO Lactated Ringer's (Ringers, Lactated) 1,000 mls @ 100 mls/hr IV ASDIRECTED CARRILLO Oxytocin/Lactated Ringer's (Pitocin In Lr 10 Units/1,000 Ml) 10 unit in 1,000 mls @ 500 mls/hr IV .CONTINUOUS CARRILLO Nalbuphine HCl (Nubain) 10 mg IVPUSH Q2H PRN PRN Reason: Pain (moderate 4-6) Ondansetron HCl (Zofran) 4 mg IVPUSH Q4H PRN PRN Reason: Nausea/Vomiting Sodium Chloride (Saline Flush) 10 ml FLUSH ASDIRECTED PRN PRN Reason: Keep Vein Open Discontinued Medications Ampicillin Sodium 2 gm/ Sodium (Chloride) 100 mls @ 200 mls/hr IV ONETIME ONE Stop: 09/29/17 13:34
[2017-09-29] MEDS: Lactated Ringers 1,000 ML IV SCH ×4 (13:58→20:14)
--- NOTE | 2017-09-29 14:46 | PCM.LDHP ---
L&D History of Present Illness - General Date of Service: 09/29/17 Admit Problem/Dx: Patient Status Order with Admit Dx/Problem 09/29/17 13:06 Patient Status [ADT] Routine Admission Diagnosis/Problem Admission Diagnosis/Problem Normal Source of Information: Patient History Limitations: Reports: No Limitations - History of Present Illness Introduction:: Patient is a 22 y/o at 38 0/7 wks who presents today in labor. Contractions are picking up in intensity. No LOF. No other concerns. 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: , Therapeutic : 3 Para: 1 - Past Surgical History Female Surgical History: Reports: D&C Social & Family History - Tobacco Use Smoking Status *Q: Never Smoker Years of Tobacco use: 6 Packs/Tins Daily: 0.1 Second Hand Smoke Exposure: No - Caffeine Use Caffeine Use: Reports: Coffee, Soda, Tea - Alcohol Use Alcohol Use History: No - Recreational Drug Use Recreational Drug Use: No - Living Situation & Occupation Living situation: Reports: Single, Alone Occupation: Employed H&P Review of Systems - Review of Systems: Review Of Systems: See Below General: Reports: No Symptoms Pulmonary: Reports: No Symptoms Cardiovascular: Reports: No Symptoms Gastrointestinal: Reports: No Symptoms Genitourinary: Reports: No Symptoms Musculoskeletal: Reports: No Symptoms Psychiatric: Reports: No Symptoms Neurological: Reports: No Symptoms L&D Exam - Exam Exam: See Below - Vital Signs Vital Signs: Last Vital Signs Temp Pulse 82 09/29/17 13:49 Resp 20 09/29/17 13:49 BP 130/65 09/29/17 13:49 Pulse Ox 98 09/29/17 13:49 Weight: 86.183 kg - OB Specific Contraction Intensity: Moderate to Strong Movement: Active Heart Tones: Present Heart Tones per Min: 140 Heart Rate (FHR) Variability: Moderate (6-25 bmp) Presentation: Vertex - Hua Score Hua Score Cervix Position: Posterior Hua Score Consistency: Soft Hua Score Effacement: >80% Hua Score Dilation: 3-4 cm Hua Score Infant's Station: -2 Hua Score Total: 8 - Exam General: Alert, Oriented, Cooperative Lungs: Clear to Auscultation, Normal Respiratory Effort Cardiovascular: Regular Rate, Regular Rhythm GI/Abdominal Exam: Soft, Non-Tender Genitourinary: Normal external exam Extremities: Normal Inspection Skin: Warm, Dry, Intact - Patient Data Lab Results Last 24 hrs: Laboratory Results - last 24 hr 09/29/17 09/29/17 Range/Units 13:20 13:20 WBC 7.38 (3.98-10.04) K/mm3 RBC 3.59 L (3.98-5.22) M/mm3 Hgb 10.5 L (11.2-15.7) gm/L Hct 32.1 L (34.1-44.9) % MCV 89.4 (79.4-94.8) fl MCH 29.2 (25.6-32.2) pg MCHC 32.7 (32.2-35.5) g/dl RDW Std Deviation 43.1 (36.4-46.3) fL Plt Count 270 (182-369) K/mm3 MPV 9.5 (9.4-12.3) fl Blood Type O POSITIVE Gel Antibody Screen Negative Result Diagrams: 09/29/17 13:20 - Problem List (1) 38 weeks gestation of SNOMED Code(s): 03244249 ICD Code: Z3A.38 - 38 WEEKS GESTATION OF Status: Acute Current Visit: Yes (2) GBS (group B Streptococcus carrier), +RV culture, currently SNOMED Code(s): 1255117431496, 191100153, 0112929703305 ICD Code: O99.820 - STREPTOCOCCUS B CARRIER STATE COMPLICATING Status: Acute Current Visit: Yes Problem List Initiated/Reviewed/Updated: Yes Orders Last 24hrs: Active Orders 24 hr Category Date Time Status Patient Status [ADT] Routine ADT 09/29/17 13:06 Active Activity as Tolerated [RC] PFP Care 09/29/17 13:05 Active Communication Order [RC] ASDIRECTED Care 09/29/17 13:05 Active Heart Tones [RC] ASDIRECTED Care 09/29/17 13:06 Active Notify Provider [RC] PFP Care 09/29/17 13:05 Active Notify Provider [RC] PRN Care 09/29/17 13:05 Active Peripheral IV Care [RC] . DIRECTED Care 09/29/17 13:06 Active Vital Signs [RC] PER UNIT ROUTINE Care 09/29/17 13:05 Active Regular Diet [DIET] Diet 09/29/17 Lunch Active Ampicillin 1 gm Med 09/29/17 13:15 Active Sodium Chloride 0.9% [Normal Saline] 100 ml IV Q4H Bupivacaine/fentaNYL/NS [fentaNYL/Bupivacaine/NS 2.5 Med 09/29/17 14:00 Active MCG-0.1% 50 ML] 50 ml EPIDUR ASDIRECTED Lactated Ringers [Ringers, Lactated] 1,000 ml Med 09/29/17 13:15 Active IV ASDIRECTED Nalbuphine [Nubain] Med 09/29/17 13:05 Active 10 mg IVPUSH Q2H PRN Ondansetron [Zofran] Med 09/29/17 13:49 Active 4 mg IVPUSH ONETIME PRN Ondansetron [Zofran] Med 09/29/17 13:05 Active 4 mg IVPUSH Q4H PRN Oxytocin/Lactated Ringers [Pitocin in LR 10 Units/1,000 Med 09/29/17 13:15 Active ML] 10 unit in 1,000 ml IV .CONTINUOUS Sodium Chloride 0.9% [Saline Flush] Med 09/29/17 13:05 Active 10 ml FLUSH ASDIRECTED PRN diphenhydrAMINE [Benadryl] Med 09/29/17 13:49 Active 25 mg IVPUSH Q6H PRN ePHEDrine [ePHEDrine Sulfate] Med 09/29/17 13:49 Active 5 mg IVPUSH ASDIRECTED PRN fentaNYL [Sublimaze] Med 09/29/17 13:49 Active 100 mcg EPIDUR Q3H PRN Electronic Heart Tones Ext w TOCO [WOMSER] Oth 09/29/17 13:05 Ordered Routine Electronic Heart Tones Internal [WOMSER] Per Unit Oth 09/29/17 13:05 Ordered Routine Peripheral IV Insertion Adult [OM.PC] Routine Oth 09/29/17 13:05 Ordered Resuscitation Status Routine Resus Stat 09/29/17 13:05 Ordered Medication Orders Diphenhydramine HCl (Benadryl) 25 mg IVPUSH Q6H PRN PRN Reason: Pruritis Ephedrine Sulfate (Ephedrine Sulfate) 5 mg IVPUSH ASDIRECTED PRN PRN Reason: Hypotension Fentanyl (Sublimaze) 100 mcg EPIDUR Q3H PRN PRN Reason: Pain Fentanyl/Bupivacaine HCl (Fentanyl/Bupivacaine/Ns 2.5 Mcg-0.1% 50 Ml) 50 ml EPIDUR ASDIRECTED [facility] Ampicillin Sodium 1 gm/ Sodium (Chloride) 100 mls @ 200 mls/hr IV Q4H [facility] Lactated Ringer's (Ringers, Lactated) 1,000 mls @ 100 mls/hr IV ASDIRECTED [facility] Last Admin: 09/29/17 13:58 Dose: 100 mls/hr Oxytocin/Lactated Ringer's (Pitocin In Lr 10 Units/1,000 Ml) 10 unit in 1,000 mls @ 500 mls/hr IV .CONTINUOUS [facility] Nalbuphine HCl (Nubain) 10 mg IVPUSH Q2H PRN PRN Reason: Pain (moderate 4-6) Ondansetron HCl (Zofran) 4 mg IVPUSH Q4H PRN PRN Reason: Nausea/Vomiting Ondansetron HCl (Zofran) 4 mg IVPUSH ONETIME PRN PRN Reason: Nausea/Vomiting Sodium Chloride (Saline Flush) 10 ml FLUSH ASDIRECTED PRN PRN Reason: Keep Vein Open Assessment/Plan Comment:: 22 y/o at 38 0/7 wks who presents for labor (initial exam 2-3 per nursing, now 3-4) * CBC and T&S * GBS positive, will start ampicillin for prophylaxis * Pain management per patient preference * Anticipate
[2017-09-29] MEDS: fentaNYL/Bupivacaine in NS PF 2.5 MCG/ML-0.1% 50 ML Syringe EPIDUR SCH ×2 (17:52→22:22)
[2017-09-29] MEDS: Ampicillin 1 GM in Sodium Chloride 0.9% 100 ML IV SCH ×2 (17:59→22:22)
--- NOTE | 2017-09-29 18:52 | PCM.PNLD ---
Labor Progress Note - VS & Meds Vital Signs: Last Vital Signs Temp Pulse 82 09/29/17 13:49 Resp 20 09/29/17 13:49 BP 130/65 09/29/17 13:49 Pulse Ox 98 09/29/17 13:49 Active Medications: Current Medications Diphenhydramine HCl (Benadryl) 25 mg IVPUSH Q6H PRN PRN Reason: Pruritis Ephedrine Sulfate (Ephedrine Sulfate) 5 mg IVPUSH ASDIRECTED PRN PRN Reason: Hypotension Fentanyl (Sublimaze) 100 mcg EPIDUR Q3H PRN PRN Reason: Pain Last Admin: 09/29/17 17:51 Dose: 100 mcg Fentanyl/Bupivacaine HCl (Fentanyl/Bupivacaine/Ns 2.5 Mcg-0.1% 50 Ml) 50 ml EPIDUR ASDIRECTED [facility] Last Admin: 09/29/17 17:52 Dose: 50 ml Lactated Ringer's (Ringers, Lactated) 1,000 mls @ 100 mls/hr IV ASDIRECTED [facility] Last Admin: 09/29/17 17:35 Dose: 100 mls/hr Oxytocin/Lactated Ringer's (Pitocin In Lr 10 Units/1,000 Ml) 10 unit in 1,000 mls @ 500 mls/hr IV .CONTINUOUS [facility] Ampicillin Sodium 1 gm/ Sodium (Chloride) 100 mls @ 200 mls/hr IV Q4H [facility] Last Admin: 09/29/17 17:59 Dose: 200 mls/hr Nalbuphine HCl (Nubain) 10 mg IVPUSH Q2H PRN PRN Reason: Pain (moderate 4-6) Ondansetron HCl (Zofran) 4 mg IVPUSH Q4H PRN PRN Reason: Nausea/Vomiting Ondansetron HCl (Zofran) 4 mg IVPUSH ONETIME PRN PRN Reason: Nausea/Vomiting Sodium Chloride (Saline Flush) 10 ml FLUSH ASDIRECTED PRN PRN Reason: Keep Vein Open Discontinued Medications Ampicillin Sodium 2 gm/ Sodium (Chloride) 100 mls @ 200 mls/hr IV ONETIME ONE Stop: 09/29/17 13:34 Last Admin: 09/29/17 13:58 Dose: 200 mls/hr Ampicillin Sodium 1 gm/ Sodium (Chloride) 100 mls @ 200 mls/hr IV Q4H [facility] Last Admin: 09/29/17 16:16 Dose: Not Given - Uterine Contractions Uterine Monitoring Mode: External [place] Contraction Intensity: Moderate to Strong Uterine Resting Tone: Soft - Monitoring Monitor Mode: External Ultrasound Heart Rate (FHR) Baseline: 150 Heart Rate (FHR) Variability: Moderate (6-25 bmp) Accelerations: Present, 15x15 Decelerations: None Strip Review: Category I - Vaginal Exam Dilation (cm): 4 Effacement (Percent): 80 Station: -2 Cervical Position: Midposition - Labor Progress (Free Text) Labor Progress: Patient doing well. Comfortable with epidural. 2nd dose of antibiotics done. AROM performed with release of scant amount of clear fluid. Continue present management otherwise
[2017-09-30] MEDS ORDERED: Bupivacaine 0.25% 10 ML SDV ONE (01:00)
[2017-09-30] MEDS ORDERED: ceFAZolin 1 GM in Premix Bag 1 BAG IV ONE (01:40)
--- NOTE | 2017-09-30 01:40 | PCM.DEL ---
L & D Note - General Info Date of Service: 09/30/17 - Delivery Note Labor: Spontaneous, Augmented by ARM Delivery Outcome: Livebirth Infant Delivery Method: Spontaneous Vaginal Delivery-Single Infant Delivery Mode: Spontaneous Presentation: Left Occiput Anterior (DORINDA) Nuchal Cord: None Anesthesia Type: Epidural Amniotic Fluid Description: Clear Episiotomy Type: None Laceration: 1st Degree, Perineal Suture type: Vicryl Suture size: 2-0 Placenta: Manual Removal, Retained Cord: 3 Vessels Estimated Blood Loss: 300 Resuscitation Needed: Yes Walker: Bulb Syringe, Stimulated, Warmed, [place] Used, Warmer Used Delivery Comments (Free Text/Narrative):: Patient found to be complete and began pushing. With maternal pushing effort head delivered from an DORINDA presentation. No nuchal cord present. With gentle downward traction the shoulders and body delivered. Infant placed on maternal abdomen. Cord clamped and cut. Cord blood obtained. Placenta allowed time to separate, but after about 25 minutes still had not delivered. Manual exploration then performed and placenta able to be grasped and delivered. Evaluation afterwards showed it to be intact. Inspection of the perineum showed a 1st degree laceration which was bleeding and so was re- approximated with a single interrupted suture of 2-0 vicryl placed in a figure of eight fashion. - Patient Data Vitals - Most Recent: Last Vital Signs Temp Pulse 82 09/29/17 13:49 Resp 20 09/29/17 13:49 BP 130/65 09/29/17 13:49 Pulse Ox 98 09/29/17 13:49 Weight - Most Recent: 86.183 kg I&O - Last 24 Hours: Intake & Output 09/29/17 09/29/17 09/30/17 14:59 22:59 06:59 Intake Total 2200 Balance 2200 Lab Results Last 24 Hours: Laboratory Results - last 24 hr 09/29/17 09/29/17 Range/Units 13:20 13:20 WBC 7.38 (3.98-10.04) K/mm3 RBC 3.59 L (3.98-5.22) M/mm3 Hgb 10.5 L (11.2-15.7) gm/L Hct 32.1 L (34.1-44.9) % MCV 89.4 (79.4-94.8) fl MCH 29.2 (25.6-32.2) pg MCHC 32.7 (32.2-35.5) g/dl RDW Std Deviation 43.1 (36.4-46.3) fL Plt Count 270 (182-369) K/mm3 MPV 9.5 (9.4-12.3) fl Blood Type O POSITIVE Gel Antibody Screen Negative Med Orders - Current: Current Medications Diphenhydramine HCl (Benadryl) 25 mg IVPUSH Q6H PRN PRN Reason: Pruritis Ephedrine Sulfate (Ephedrine Sulfate) 5 mg IVPUSH ASDIRECTED PRN PRN Reason: Hypotension Fentanyl (Sublimaze) 100 mcg EPIDUR Q3H PRN PRN Reason: Pain Last Admin: 09/29/17 17:51 Dose: 100 mcg Fentanyl/Bupivacaine HCl (Fentanyl/Bupivacaine/Ns 2.5 Mcg-0.1% 50 Ml) 50 ml EPIDUR ASDIRECTED [facility] Last Admin: 09/29/17 22:22 Dose: 50 ml Lactated Ringer's (Ringers, Lactated) 1,000 mls @ 100 mls/hr IV ASDIRECTED [facility] Last Admin: 09/29/17 20:14 Dose: 100 mls/hr Oxytocin/Lactated Ringer's (Pitocin In Lr 10 Units/1,000 Ml) 10 unit in 1,000 mls @ 500 mls/hr IV .CONTINUOUS [facility] Ampicillin Sodium 1 gm/ Sodium (Chloride) 100 mls @ 200 mls/hr IV Q4H [facility] Last Admin: 09/29/17 22:22 Dose: 200 mls/hr Oxytocin/Lactated Ringer's (Pitocin In Lr 10 Units/1,000 Ml) 10 unit in 1,000 mls @ 12 mls/hr IV TITRATE [facility]; Protocol Nalbuphine HCl (Nubain) 10 mg IVPUSH Q2H PRN PRN Reason: Pain (moderate 4-6) Ondansetron HCl (Zofran) 4 mg IVPUSH Q4H PRN PRN Reason: Nausea/Vomiting Ondansetron HCl (Zofran) 4 mg IVPUSH ONETIME PRN PRN Reason: Nausea/Vomiting Sodium Chloride (Saline Flush) 10 ml FLUSH ASDIRECTED PRN PRN Reason: Keep Vein Open Discontinued Medications Ampicillin Sodium 2 gm/ Sodium (Chloride) 100 mls @ 200 mls/hr IV ONETIME ONE Stop: 09/29/17 13:34 Last Admin: 09/29/17 13:58 Dose: 200 mls/hr Ampicillin Sodium 1 gm/ Sodium (Chloride) 100 mls @ 200 mls/hr IV Q4H [facility] Last Admin: 09/29/17 16:16 Dose: Not Given Cefazolin Sodium/Dextrose (Ancef) Confirm Administered Dose 50 mls @ as directed .ROUTE .STK-MED ONE Stop: 09/30/17 01:33 - Problem List & Annotations (1) 38 weeks gestation of SNOMED Code(s): 37587759 Code(s): Z3A.38 - 38 WEEKS GESTATION OF Status: Acute Current Visit: Yes (2) GBS (group B Streptococcus carrier), +RV culture, currently SNOMED Code(s): 8302312559283, 113459692, 1101122271448 Code(s): O99.820 - STREPTOCOCCUS B CARRIER STATE COMPLICATING Status: Acute Current Visit: Yes (3) Vaginal delivery SNOMED Code(s): 298858637 Code(s): O80 - ENCOUNTER FOR FULL-TERM UNCOMPLICATED DELIVERY Status: Acute Current Visit: Yes (4) Retained placenta SNOMED Code(s): 502472409 Code(s): O73.0 - RETAINED PLACENTA WITHOUT HEMORRHAGE Status: Acute Current Visit: Yes Qualifiers: Retained placenta detail: unspecified Qualified Code(s): O73.0 - Retained placenta without hemorrhage - Problem List Review Problem List Initiated/Reviewed/Updated: Yes - My Orders Last 24 Hours: My Active Orders 09/29/17 13:05 Activity as Tolerated [RC] PFP Communication Order [RC] ASDIRECTED Notify Provider [RC] PFP Notify Provider [RC] PRN Vital Signs [RC] PER UNIT ROUTINE Nalbuphine [Nubain] 10 mg IVPUSH Q2H PRN Ondansetron [Zofran] 4 mg IVPUSH Q4H PRN Sodium Chloride 0.9% [Saline Flush] 10 ml FLUSH ASDIRECTED PRN Electronic Heart Tones Ext w TOCO [WOMSER] Routine Electronic Heart Tones Internal [WOMSER] Per Unit Routine Peripheral IV Insertion Adult [OM.PC] Routine Resuscitation Status Routine 09/29/17 13:06 Patient Status [ADT] Routine Heart Tones [RC] ASDIRECTED Peripheral IV Care [RC] . DIRECTED 09/29/17 13:15 Lactated Ringers [Ringers, Lactated] 1,000 ml IV ASDIRECTED Oxytocin/Lactated Ringers [Pitocin in LR 10 Units/1,000 ML] 10 unit in 1,000 ml IV .CONTINUOUS 09/29/17 18:00 Ampicillin 1 gm Sodium Chloride 0.9% [Normal Saline] 100 ml IV Q4H 09/29/17 22:00 Oxytocin/Lactated Ringers [Pitocin in LR 10 Units/1,000 ML] 10 unit in 1,000 ml IV TITRATE 09/29/17 Lunch Regular Diet [DIET] - Assessment Assessment:: 22 y/o G3 now P2012 now PPD#0 from at 38 1/7 wks - Plan Plan:: * Routine cares * bottle feeding * Discharge home in 1-2 days
[2017-09-30] MEDS ORDERED: Witch Hazel Medicated Pads 100/Jar TOP PRN (02:04)
[2017-09-30] MEDS ORDERED: Benzocaine/Menthol 20%-0.5% Spray 56 GM Canister TOP PRN (02:04)
[2017-09-30] MEDS ORDERED: Acetaminophen 325 MG Tab PO PRN (02:04)
[2017-09-30] MEDS ORDERED: Docusate Sodium 100 MG Cap PO PRN (02:04)
[2017-09-30] MEDS ORDERED: Lanolin 100% Cream 7 GM Tube TOP PRN (02:04)
--- NOTE | 2017-09-30 09:11 | PCM48HPAN ---
Post Anesthesia Note - EVALUATION WITHIN 48HRS OF ANESTHETIC Vital Signs in Normal Range: Yes Patient Participated in Evaluation: Yes Respiratory Function Stable: Yes Airway Patent: Yes Cardiovascular Function Stable: Yes Hydration Status Stable: Yes Pain Control Satisfactory: Yes Nausea and Vomiting Control Satisfactory: Yes Mental Status Recovered: Yes
[2017-09-30] MEDS: Ibuprofen 600 MG Tab PO PRN ×2 (12:47→19:29)
[2017-09-30] MEDS: Ampicillin 1 GM in Sodium Chloride 0.9% 100 ML IV SCH (22:57)
--- NOTE | 2017-10-01 07:03 | PCM.PNPP ---
- General Info Date of Service: 10/01/17 Functional Status: Reports: Pain Controlled, Tolerating Diet, Ambulating, Urinating - Review of Systems General: Reports: No Symptoms Pulmonary: Reports: No Symptoms Cardiovascular: Reports: No Symptoms Gastrointestinal: Reports: No Symptoms Genitourinary: Reports: No Symptoms Musculoskeletal: Reports: No Symptoms Neurological: Reports: No Symptoms - Patient Data Vital Signs - Most Recent: Last Vital Signs Temp 36.8 C 10/01/17 05:22 Pulse 86 10/01/17 05:22 Resp 15 10/01/17 05:22 BP 139/88 10/01/17 05:22 Pulse Ox 98 10/01/17 05:22 Weight - Most Recent: 86.183 kg Med Orders - Current: Current Medications Acetaminophen (Tylenol) 650 mg PO Q4H PRN PRN Reason: mild pain or fever Last Admin: 09/30/17 19:27 Dose: 650 mg Benzocaine/Menthol (Dermoplast Pain Relief [place]) 0 gm TOP ASDIRECTED PRN PRN Reason: Perineal Comfort Measure Docusate Sodium (Colace) 100 mg PO BID PRN PRN Reason: Constipation Emollient Ointment (Lansinoh Hpa) 0 gm TOP ASDIRECTED PRN PRN Reason: Sore Nipples Ibuprofen (Motrin) 600 mg PO Q6H PRN PRN Reason: Mild pain or fever Last Admin: 09/30/17 19:29 Dose: 600 mg Witch Tejal (Tucks) 1 pad TOP ASDIRECTED PRN PRN Reason: Hemorrhoid pain Discontinued Medications Diphenhydramine HCl (Benadryl) 25 mg IVPUSH Q6H PRN PRN Reason: Pruritis Ephedrine Sulfate (Ephedrine Sulfate) 5 mg IVPUSH ASDIRECTED PRN PRN Reason: Hypotension Fentanyl (Sublimaze) 100 mcg EPIDUR Q3H PRN PRN Reason: Pain Last Admin: 09/29/17 17:51 Dose: 100 mcg Fentanyl/Bupivacaine HCl (Fentanyl/Bupivacaine/Ns 2.5 Mcg-0.1% 50 Ml) 50 ml EPIDUR ASDIRECTED [facility] Last Admin: 09/29/17 22:22 Dose: 50 ml Ampicillin Sodium 2 gm/ Sodium (Chloride) 100 mls @ 200 mls/hr IV ONETIME ONE Stop: 09/29/17 13:34 Last Admin: 09/29/17 13:58 Dose: 200 mls/hr Ampicillin Sodium 1 gm/ Sodium (Chloride) 100 mls @ 200 mls/hr IV Q4H [facility] Last Admin: 09/29/17 16:16 Dose: Not Given Lactated Ringer's (Ringers, Lactated) 1,000 mls @ 100 mls/hr IV ASDIRECTED [facility] Last Admin: 09/29/17 20:14 Dose: 100 mls/hr Oxytocin/Lactated Ringer's (Pitocin In Lr 10 Units/1,000 Ml) 10 unit in 1,000 mls @ 500 mls/hr IV .CONTINUOUS [facility] Ampicillin Sodium 1 gm/ Sodium (Chloride) 100 mls @ 200 mls/hr IV Q4H [facility] Last Admin: 09/30/17 22:57 Dose: Not Given Oxytocin/Lactated Ringer's (Pitocin In Lr 10 Units/1,000 Ml) 10 unit in 1,000 mls @ 12 mls/hr IV TITRATE [facility]; Protocol Cefazolin Sodium/Dextrose (Ancef) Confirm Administered Dose 50 mls @ as directed .ROUTE .STK-MED ONE Stop: 09/30/17 01:33 Last Admin: 09/30/17 22:56 Dose: Not Given Cefazolin Sodium/Dextrose 1 gm (/ Premix) 50 mls @ 100 mls/hr IV ONETIME ONE Stop: 09/30/17 02:09 Last Admin: 09/30/17 01:55 Dose: 100 mls/hr Nalbuphine HCl (Nubain) 10 mg IVPUSH Q2H PRN PRN Reason: Pain (moderate 4-6) Ondansetron HCl (Zofran) 4 mg IVPUSH Q4H PRN PRN Reason: Nausea/Vomiting Ondansetron HCl (Zofran) 4 mg IVPUSH ONETIME PRN PRN Reason: Nausea/Vomiting Sodium Chloride (Saline Flush) 10 ml FLUSH ASDIRECTED PRN PRN Reason: Keep Vein Open - Interaction Infant Disposition, : Supply in Room with Family Infant Interaction: Holding Feeding: Bottle Fed Support Person: Significant Other - Recovery Exam Fundal Tone: Firm Fundal Level: 1 Fingerbreadths Below Umbilicus Fundal Placement: Midline Lochia Amount: Scant, Small Lochia Color: Rubra/Red Perineum Description: Other (see below) Other Perinuem Description: First degree lac with repair Episiotomy/Laceration: None Bladder Status: Voiding Urinary Elimination: Voided - Exam General: Alert, Oriented, Cooperative GI/Abdominal Exam: Soft, Non-Tender Extremities: Normal Inspection Skin: Warm, Dry, Intact - Problem List & Annotations (1) 38 weeks gestation of SNOMED Code(s): 57598669 Code(s): Z3A.38 - 38 WEEKS GESTATION OF Status: Acute Current Visit: Yes (2) GBS (group B Streptococcus carrier), +RV culture, currently SNOMED Code(s): 1100049543025, 652986966, 6975124373886 Code(s): O99.820 - STREPTOCOCCUS B CARRIER STATE COMPLICATING Status: Acute Current Visit: Yes (3) Vaginal delivery SNOMED Code(s): 656639113 Code(s): O80 - ENCOUNTER FOR FULL-TERM UNCOMPLICATED DELIVERY Status: Acute Current Visit: Yes (4) Retained placenta SNOMED Code(s): 664157811 Code(s): O73.0 - RETAINED PLACENTA WITHOUT HEMORRHAGE Status: Acute Current Visit: Yes Qualifiers: Retained placenta detail: unspecified Qualified Code(s): O73.0 - Retained placenta without hemorrhage - Problem List Review Problem List Initiated/Reviewed/Updated: Yes - My Orders Last 24 Hours: My Active Orders 09/30/17 Breakfast Regular Diet [DIET] 10/01/17 02:04 Heat Therapy [OM.PC] PRN - Assessment Assessment:: 22 y/o G3 now P2012 now PPD#1 from at 38 1/7 wks - Plan Plan:: * Routine cares * bottle feeding * Discharge home today
--- NOTE | 2017-10-01 07:04 | PCM.DCSUM1 ---
Discharge Summary - Discharge Data Discharge Date: 10/01/17 Discharge Disposition: Home, Self-Care 01 Condition: Good - Discharge Diagnosis/Problem(s) (1) 38 weeks gestation of SNOMED Code(s): 51146221 ICD Code: Z3A.38 - 38 WEEKS GESTATION OF Status: Acute Current Visit: Yes (2) GBS (group B Streptococcus carrier), +RV culture, currently SNOMED Code(s): 1900006794411, [id number], [id number] ICD Code: O99.820 - STREPTOCOCCUS B CARRIER STATE COMPLICATING Status: Acute Current Visit: Yes (3) Vaginal delivery SNOMED Code(s): 254765704 ICD Code: O80 - ENCOUNTER FOR FULL-TERM UNCOMPLICATED DELIVERY Status: Acute Current Visit: Yes (4) Retained placenta SNOMED Code(s): 091011887 ICD Code: O73.0 - RETAINED PLACENTA WITHOUT HEMORRHAGE Status: Acute Current Visit: Yes Qualifiers: Retained placenta detail: unspecified Qualified Code(s): O73.0 - Retained placenta without hemorrhage - Patient Summary/Data Complications: None Consults: None Recommended Follow-up Testing/Procedures: Follow up in 3-6 weeks for check Hospital Course: Patient is a 22 y/o who presented at 38 0/7 in labor. She progressed well to complete dilation and underwent . After delivery she did have a retained placenta which required manual removal after about 25 minutes. She did receive 1 dose of ancef for extraction. Afterwards she did well with appropriate bleeding. She otherwise did well and was discharged home on PPD#1 - Patient Instructions Diet: Regular Diet as Tolerated Activity: As Tolerated Activity, Other: Pelvic Rest for 6 weeks Driving: May Drive Today Showering/Bathing: May Shower Notify Provider of: Fever, Increased Pain, Swelling and Redness, Drainage, Nausea and/or Vomiting - Discharge Plan Home Medications: Home Meds Ibuprofen [IJD: Ibuprofen] 600 mg PO Q6H PRN tablet 10/01/17 [Rx] Patient Handouts: Steps to Quit Smoking - Discharge Summary/Plan Comment DC Time >30 min.: No - Patient Data Vitals - Most Recent: Last Vital Signs Temp 36.8 C 10/01/17 05:22 Pulse 86 10/01/17 05:22 Resp 15 10/01/17 05:22 BP 139/88 10/01/17 05:22 Pulse Ox 98 10/01/17 05:22 Weight - Most Recent: 86.183 kg Med Orders - Current: Current Medications Acetaminophen (Tylenol) 650 mg PO Q4H PRN PRN Reason: mild pain or fever Last Admin: 09/30/17 19:27 Dose: 650 mg Benzocaine/Menthol (Dermoplast Pain Relief [place]) 0 gm TOP ASDIRECTED PRN PRN Reason: Perineal Comfort Measure Docusate Sodium (Colace) 100 mg PO BID PRN PRN Reason: Constipation Emollient Ointment (Lansinoh Hpa) 0 gm TOP ASDIRECTED PRN PRN Reason: Sore Nipples Ibuprofen (Motrin) 600 mg PO Q6H PRN PRN Reason: Mild pain or fever Last Admin: 09/30/17 19:29 Dose: 600 mg Witch Tejal (Tucks) 1 pad TOP ASDIRECTED PRN PRN Reason: Hemorrhoid pain Discontinued Medications Diphenhydramine HCl (Benadryl) 25 mg IVPUSH Q6H PRN PRN Reason: Pruritis Ephedrine Sulfate (Ephedrine Sulfate) 5 mg IVPUSH ASDIRECTED PRN PRN Reason: Hypotension Fentanyl (Sublimaze) 100 mcg EPIDUR Q3H PRN PRN Reason: Pain Last Admin: 09/29/17 17:51 Dose: 100 mcg Fentanyl/Bupivacaine HCl (Fentanyl/Bupivacaine/Ns 2.5 Mcg-0.1% 50 Ml) 50 ml EPIDUR ASDIRECTED [facility] Last Admin: 09/29/17 22:22 Dose: 50 ml Ampicillin Sodium 2 gm/ Sodium (Chloride) 100 mls @ 200 mls/hr IV ONETIME ONE Stop: 09/29/17 13:34 Last Admin: 09/29/17 13:58 Dose: 200 mls/hr Ampicillin Sodium 1 gm/ Sodium (Chloride) 100 mls @ 200 mls/hr IV Q4H [facility] Last Admin: 09/29/17 16:16 Dose: Not Given Lactated Ringer's (Ringers, Lactated) 1,000 mls @ 100 mls/hr IV ASDIRECTED [facility] Last Admin: 09/29/17 20:14 Dose: 100 mls/hr Oxytocin/Lactated Ringer's (Pitocin In Lr 10 Units/1,000 Ml) 10 unit in 1,000 mls @ 500 mls/hr IV .CONTINUOUS CARRILLO Ampicillin Sodium 1 gm/ Sodium (Chloride) 100 mls @ 200 mls/hr IV Q4H [facility] Last Admin: 09/30/17 22:57 Dose: Not Given Oxytocin/Lactated Ringer's (Pitocin In Lr 10 Units/1,000 Ml) 10 unit in 1,000 mls @ 12 mls/hr IV TITRATE CARRILLO; Protocol Cefazolin Sodium/Dextrose (Ancef) Confirm Administered Dose 50 mls @ as directed .ROUTE .STK-MED ONE Stop: 09/30/17 01:33 Last Admin: 09/30/17 22:56 Dose: Not Given Cefazolin Sodium/Dextrose 1 gm (/ Premix) 50 mls @ 100 mls/hr IV ONETIME ONE Stop: 09/30/17 02:09 Last Admin: 09/30/17 01:55 Dose: 100 mls/hr Nalbuphine HCl (Nubain) 10 mg IVPUSH Q2H PRN PRN Reason: Pain (moderate 4-6) Ondansetron HCl (Zofran) 4 mg IVPUSH Q4H PRN PRN Reason: Nausea/Vomiting Ondansetron HCl (Zofran) 4 mg IVPUSH ONETIME PRN PRN Reason: Nausea/Vomiting Sodium Chloride (Saline Flush) 10 ml FLUSH ASDIRECTED PRN PRN Reason: Keep Vein Open
[2017-10-01 09:58] VITALS: BP 144/104
== END 2017-10-01 09:10 | disposition home or self-care (01) | DRG 767 ==
LOC: JD.OBCHECK 12:15 → JD.OB 12:15 → JD.ED 12:15 → EDSTATUS 12:34 → JD.OBCHECK 12:58 → JD.OB 12:58 → OBSVTOIN 09-30 01:04
PROVIDERS: ADMIT Obstetrics & Gynecology; ATTEND Obstetrics & Gynecology
PROC: 10E0XZZ Delivery of Products of Conception, External Approach (ICD-10-PCS; principal; 2017-09-30)
PROC: 10D17Z9 Manual Extraction of Products of Conception, Retained, Via Natural or Artificial Opening (ICD-10-PCS; 2017-09-30)
PROC: 10907ZC Drainage of Amniotic Fluid, Therapeutic from Products of Conception, Via Natural or Artificial Opening (ICD-10-PCS; 2017-09-30)
PROC: 6A550ZT Pheresis of Cord Blood Stem Cells, Single (ICD-10-PCS; 2017-09-30)
PROC: 0HQ9XZZ Repair Perineum Skin, External Approach (ICD-10-PCS; 2017-09-30)
PROC: 00HU33Z Insertion of Infusion Device into Spinal Canal, Percutaneous Approach (ICD-10-PCS; 2017-09-30)
PROC: 3E0R3BZ Introduction of Anesthetic Agent into Spinal Canal, Percutaneous Approach (ICD-10-PCS; 2017-09-30)
DX: O99.824 Streptococcus B carrier state complicating childbirth (principal); Z37.0 Single live birth; O73.0 Retained placenta without hemorrhage; Z3A.38 38 weeks gestation of pregnancy; Z87.442 Personal history of urinary calculi; O99.334 Smoking (tobacco) complicating childbirth; F17.200 Nicotine dependence, unspecified, uncomplicated; O70.0 First degree perineal laceration during delivery; O75.3 Other infection during labor; N20.0 Calculus of kidney
CPT/HCPCS: 36415; 51702; 59025; 59300; 59409; 85027; 86850; 86900; 86901; A9270-GY; J0290; J0690; J3010; J7030; J7120

== ENCOUNTER 2018-09-18 16:50 | Emergency (ER) | payer MEDICAID ==
[2018-09-18 17:37] VITALS: BP 122/87
[2018-09-18] MEDS ORDERED: Sodium Chloride 0.9% 1,000 ML IV ONE (18:43)
[2018-09-18] MEDS ORDERED: Ondansetron 4 MG/2 ML SDV IVPUSH ONE (18:43)
[2018-09-18] MEDS ORDERED: Ondansetron 4 MG/2 ML SDV ONE (18:45)
[2018-09-18] MEDS ORDERED: Acetaminophen 325 MG Tab PO ONE (19:18)
--- NOTE | 2018-09-18 20:22 | EDM.PDOC ---
ED HPI GENERAL MEDICAL PROBLEM - General Chief Complaint: Gastrointestinal Problem Stated Complaint: VOMITING AND DIARRHEA Time Seen by Provider: 09/18/18 18:49 Source of Information: Reports: Patient History Limitations: Reports: No Limitations - History of Present Illness INITIAL COMMENTS - FREE TEXT/NARRATIVE: 23 yo F A2 (1 stopped growing at 6 weeks) who is curently (LMP 2/16 ) comes in for N/V/D x 2 days. She has never had anything like this before. She states it happened after she ate at [employer]. She c/o chills, N/V/D, abdominal pain/cramping. She is also having difficulty sleeping as she has needed to get up every hour to vomit or have diarrhea. She denies fever, chest pain, cough, sore throat, recent travel, similar symptoms with other pregnancies. She has not tried any medications at home. She has been unable to eat but is trying to drink fluids. No other symptoms at this time. She does not have a PCP; would like a referral. [employer] SCIENCES INSTRUCTOR is Dr. Gonzalez (1st appointment 10/12/18). Middle Abdominal Pain Score (Numeric/FACES): 8 - Related Data Allergies Allergy/AdvReac Type Severity Reaction Status Date / Time No Known Allergies Allergy Verified 09/18/18 17:37 Home Meds: Home Meds . [No Known Home Meds] 09/18/18 [History] Past Medical History - Past Health History Medical/Surgical History: Denies Medical/Surgical History Genitourinary History: Reports: Renal Calculus NEWS INTERN History: Reports: , Therapeutic Other NEWS INTERN History: Dermatologic History: Reports: Other (See Below) Other Dermatologic History: cyst to groin - Past Surgical History Female Surgical History: Reports: D&C Social & Family History - Tobacco Use Smoking Status *Q: Never Smoker - Caffeine Use Caffeine Use: Reports: Coffee, Soda, Tea - Living Situation & Occupation Living situation: Reports: Single, Alone Occupation: Employed ED ROS GENERAL - Review of Systems Review Of Systems: See Below Constitutional: Reports: Chills. Denies: Fever, Decreased Appetite (just "can' t keep food down") HEENT: Reports: No Symptoms Respiratory: Reports: No Symptoms Cardiovascular: Reports: No Symptoms Endocrine: Reports: No Symptoms GI/Abdominal: Reports: Abdominal Pain, Diarrhea, Nausea, Vomiting. Denies: Black Stool, Bloody Stool, Constipation, Decreased Appetite, Hematochezia : Reports: No Symptoms Musculoskeletal: Reports: No Symptoms Skin: Reports: No Symptoms Neurological: Reports: No Symptoms Psychiatric: Reports: No Symptoms ED EXAM, GI/ABD - Physical Exam Exam: See Below Exam Limited By: No Limitations General Appearance: Alert, Mild Distress Eyes: Bilateral: Normal Appearance, EOMI Ears: Normal External Exam, Hearing Grossly Normal Nose: Normal Inspection, Normal Mucosa, No Blood Throat/Mouth: Normal Inspection, Normal Lips, Normal Teeth, Normal Gums, Normal Oropharynx, Normal Voice, No Airway Compromise Respiratory/Chest: No Respiratory Distress, Lungs Clear, Normal Breath Sounds, No Accessory Muscle Use, Chest Non-Tender Cardiovascular: Normal Peripheral Pulses, Regular Rate, Rhythm, No Edema, No Gallop, No JVD, No Murmur, No Rub GI/Abdominal Exam: Normal Bowel Sounds, Soft, Non-Tender, No Organomegaly, No Distention, No Abnormal Bruit, No Mass, Pelvis Stable Back Exam: Normal Inspection, Full Range of Motion, NT Neurological: Alert, Oriented, CN II-XII Intact, Normal Cognition, Normal Gait, Normal Reflexes, No Motor/Sensory Deficits Psychiatric: Normal Affect, Normal Mood Skin Exam: Warm, Dry, Intact, Normal Color, No Rash Course - Vital Signs Last Recorded V/S: Last Vital Signs Temp 98.6 F 09/18/18 17:34 Pulse 97 09/18/18 17:34 Resp 19 09/18/18 17:34 BP 122/87 09/18/18 17:34 Pulse Ox 100 09/18/18 17:34 - Orders/Labs/Meds Orders: Active Orders 24 hr Category Date Time Status WBC, STOOL [OP] Stat Lab 09/18/18 19:17 Ordered Labs: Laboratory Tests 09/18/18 09/18/18 09/18/18 Range/Units 18:40 18:40 18:45 WBC 6.85 (3.98-10.04) K/mm3 RBC 5.03 (3.98-5.22) M/mm3 Hgb 14.3 (11.2-15.7) gm/L Hct 43.2 (34.1-44.9) % MCV 85.9 (79.4-94.8) fl MCH 28.4 (25.6-32.2) pg MCHC 33.1 (32.2-35.5) g/dl RDW Std Deviation 43.6 (36.4-46.3) fL Plt Count 400 H (182-369) K/mm3 MPV 9.2 L (9.4-12.3) fl Neutrophils % (Manual) 80 H (40-60) % Band Neutrophils % 0 (0-10) % Lymphocytes % (Manual) 15 L (20-40) % Atypical Lymphs % 0 % Monocytes % (Manual) 5 (2-10) % Eosinophils % (Manual) 0 L (0.7-5.8) % Basophils % (Manual) 0 L (0.1-1.2) Platelet Estimate Adequate Plt Morphology Comment Normal RBC Morph Comment Normal Sodium (136-145) mEq/L Potassium (3.5-5.1) mEq/L Chloride (98-107) mEq/L Carbon Dioxide (21-32) mEq/L Anion Gap (5-15) BUN (7-18) mg/dL Creatinine (0.55-1.02) mg/dL Est Cr Clr Drug Dosing mL/min Estimated GFR (MDRD) (>60) mL/min BUN/Creatinine Ratio (14-18) Glucose (74-106) mg/dL Calcium (8.5-10.1) mg/dL Total Bilirubin (0.2-1.0) mg/dL AST (15-37) U/L ALT (14-59) U/L Alkaline Phosphatase (46-116) U/L Total Protein (6.4-8.2) g/dl Albumin (3.4-5.0) g/dl Globulin gm/dL Albumin/Globulin Ratio (1-2) HCG, Quant mIU/mL Urine Color Yellow (Yellow) Urine Appearance Clear (Clear) Urine pH 6.0 (5.0-8.0) Ur Specific [place] > or = 1.030 (1.005-1.030) Urine Protein 2+ H (Negative) Urine Glucose (UA) Negative (Negative) Urine Ketones Trace H (Negative) Urine Occult Blood Trace-intact H (Negative) Urine Nitrite Negative (Negative) Urine Bilirubin 1+ H (Negative) Urine Urobilinogen 1.0 (0.2-1.0) Ur Leukocyte Esterase Negative (Negative) Urine RBC 0-5 (0-5) /hpf Urine WBC 0-5 (0-5) /hpf Ur Epithelial Cells 0-5 (0-5) /hpf Urine Bacteria Few (FEW) /hpf Urine Mucus Many H (FEW) /hpf Urine HCG, Qual Positive (NEGATIVE) 09/18/18 09/18/18 Range/Units 18:45 18:45 WBC (3.98-10.04) K/mm3 RBC (3.98-5.22) M/mm3 Hgb (11.2-15.7) gm/L Hct (34.1-44.9) % MCV (79.4-94.8) fl MCH (25.6-32.2) pg MCHC (32.2-35.5) g/dl RDW Std Deviation (36.4-46.3) fL Plt Count (182-369) K/mm3 MPV (9.4-12.3) fl Neutrophils % (Manual) (40-60) % Band Neutrophils % (0-10) % Lymphocytes % (Manual) (20-40) % Atypical Lymphs % % Monocytes % (Manual) (2-10) % Eosinophils % (Manual) (0.7-5.8) % Basophils % (Manual) (0.1-1.2) Platelet Estimate Plt Morphology Comment RBC Morph Comment Sodium 137 (136-145) mEq/L Potassium 3.4 L (3.5-5.1) mEq/L Chloride 100 (98-107) mEq/L Carbon Dioxide 25 (21-32) mEq/L Anion Gap 15.4 H (5-15) BUN 11 (7-18) mg/dL Creatinine 0.8 (0.55-1.02) mg/dL Est Cr Clr Drug Dosing 88.93 mL/min Estimated GFR (MDRD) > 60 (>60) mL/min BUN/Creatinine Ratio 13.8 L (14-18) Glucose 115 H (74-106) mg/dL Calcium 10.0 (8.5-10.1) mg/dL Total Bilirubin 0.5 (0.2-1.0) mg/dL AST 17 (15-37) U/L ALT 21 (14-59) U/L Alkaline Phosphatase 90 (46-116) U/L Total Protein 8.7 H (6.4-8.2) g/dl Albumin 4.2 (3.4-5.0) g/dl Globulin 4.5 gm/dL Albumin/Globulin Ratio 0.9 L (1-2) HCG, Quant 30372.0 mIU/mL Urine Color (Yellow) Urine Appearance (Clear) Urine pH (5.0-8.0) Ur Specific [place] (1.005-1.030) Urine Protein (Negative) Urine Glucose (UA) (Negative) Urine Ketones (Negative) Urine Occult Blood (Negative) Urine Nitrite (Negative) Urine Bilirubin (Negative) Urine Urobilinogen (0.2-1.0) Ur Leukocyte Esterase (Negative) Urine RBC (0-5) /hpf Urine WBC (0-5) /hpf Ur Epithelial Cells (0-5) /hpf Urine Bacteria (FEW) /hpf Urine Mucus (FEW) /hpf Urine HCG, Qual (NEGATIVE) Meds: Medications Discontinued Medications Generic Name Dose Route Start Last Admin Trade Name Markq PRN Reason Stop Dose Admin Acetaminophen 650 mg 09/18/18 19:18 09/18/18 20:13 Tylenol PO 09/18/18 19:19 650 mg ONETIME ONE Administration Sodium Chloride 1,000 mls @ 999 mls/hr 09/18/18 18:43 09/18/18 19:03 Normal Saline IV 09/18/18 19:43 999 mls/hr ONETIME ONE Administration Ondansetron HCl 4 mg 09/18/18 18:43 09/18/18 19:03 Zofran IVPUSH 09/18/18 18:44 4 mg ONETIME ONE Administration Ondansetron HCl Confirm 09/18/18 18:45 Zofran Administered 09/18/18 18:46 Dose 4 mg .ROUTE .STK-MED ONE - Re-Assessments/Exams Free Text/Narrative Re-Assessment/Exam: 09/18/18 18:43 CBC, CMP, UA, HCG ordered Ordered Zofran, 1L NS bolus 09/18/18 19:18 Tylenol 650mg ordered as she is c/o abdominal pain 09/18/18 20:00 CBC WNL CMP shows K 3.4, AGap 15.4, Glu 115, Protein 8.7 UA unimpressive for UTI HCG positive At this time, this is likely Gastroenteritis with some dehydration. She is feeling better and is ready to go home. Departure - Departure Time of Disposition: 20:16 Disposition: Home, Self-Care 01 Condition: Fair Clinical Impression: Gastroenteritis - Discharge Information *PRESCRIPTION DRUG MONITORING PROGRAM REVIEWED*: Not Applicable *COPY OF PRESCRIPTION DRUG MONITORING REPORT IN PATIENT MANJULA: Not Applicable Instructions: Viral Gastroenteritis, Adult, [id number], Food Choices to Help Relieve Diarrhea, Adult, Nausea and Vomiting, Adult, [id number] Referrals: Arely Aceves PA [Physician High School Sports Coach] - Forms: ED Department Discharge Additional Instructions: You were seen in the ED today for nausea, vomiting and diarrhea for 2 days while . Your urine test is still positive. Your labs show that you there is not an acute infection affecting the rest of your body, but does show you are dehydrated. You have received IV fluids and Zofran (anti- emetic) with some relief while here. It is likely you have a viral GI infection , also known as gastroenteritis. You are stable enough to go home. Recommend you stay on a BRAT diet (banana, rice, applesauce, toast) with fluid replacement with water, Gatorade or Pedialyte. Will send you home with Zofran to help you keep food and liquids down. You can also take over the counter Imodium as needed for diarrhea. Recommend follow up with a primary care physician, have referred you to Arely Aceves PA-C here at [facility]. Please return to ED if new or worsening symptoms. - My Orders Last 24 Hours: My Active Orders 09/18/18 19:17 WBC, STOOL [OP] Stat - Assessment/Plan Last 24 Hours: My Active Orders 09/18/18 19:17 WBC, STOOL [OP] Stat
== END 2018-09-18 20:34 | disposition home or self-care (01) ==
LOC: JD.ED 16:50
DX: K52.9 Noninfective gastroenteritis and colitis, unspecified (principal)
CPT/HCPCS: 36415; 80053; 81001; 81025; 84702; 85007; 85027; 96361; 96374; 99284; A9270; J2405; J7040; 89055

== ENCOUNTER 2019-08-30 23:29 | Emergency (ER) | payer MEDICAID ==
[2019-08-30 23:35] VITALS: BP 174/122; PULSE 115
[2019-08-30] MEDS ORDERED: FLU Vacc QS2019-20(6MOS+)/PF 60 MCG/0.5 ML SYRINGE IM ONE (23:45)
[2019-08-30] MEDS ORDERED: Acetaminophen/HYDROcodone 325-5 MG Tab PO ONE (23:50)
[2019-08-30] MEDS ORDERED: LORazepam 0.5 MG Tab PO ONE (23:50)
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
== END 2019-08-31 00:42 | disposition home or self-care (01) ==
LOC: JD.ED 23:29
DX: S00.03XA Contusion of scalp, initial encounter (principal); S10.93XA Contusion of unspecified part of neck, initial encounter; S00.531A Contusion of lip, initial encounter; S40.212A Abrasion of left shoulder, initial encounter; Z23 Encounter for immunization; I10 Essential (primary) hypertension; E66.9 Obesity, unspecified; F17.210 Nicotine dependence, cigarettes, uncomplicated; Y04.2XXA Assault by strike against or bumped into by another person, initial encounter
CPT/HCPCS: 90471; 90686; 99284; A9270; 99283; G0008

== ENCOUNTER 2020-07-05 00:25 | Emergency (ER) | payer MEDICAID ==
[2020-07-05 00:33] VITALS: BP 139/96; PULSE 91
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
== END 2020-07-05 01:00 | disposition home or self-care (01) ==
LOC: JD.ED 00:25
DX: T51.91XA Toxic effect of unspecified alcohol, accidental (unintentional), initial encounter (principal); E66.9 Obesity, unspecified; Z87.891 Personal history of nicotine dependence
CPT/HCPCS: 99283; 99284

== ENCOUNTER 2021-10-10 14:57 | Emergency (ER) | payer MEDICAID ==
[2021-10-10] MEDS ORDERED: Ketorolac 60 MG/2 ML SDV IM ONE (16:33)
[2021-10-10] MEDS ORDERED: Lidocaine 1% with EPINEPHrine 1:100,000 10 ML MDV INJECT ONE (16:33)
[2021-10-10] MEDS ORDERED: Lidocaine 1% with EPINEPHrine 1:100,000 20 ML MDV ONE (16:56)
[2021-10-10 17:59] VITALS: BP 118/88; PULSE 77
== END 2021-10-10 17:59 | disposition home or self-care (01) ==
LOC: JD.ED 14:57
DX: L02.211 Cutaneous abscess of abdominal wall (principal); I10 Essential (primary) hypertension; E66.9 Obesity, unspecified; Z72.0 Tobacco use; Z68.27 Body mass index [BMI] 27.0-27.9, adult
CPT/HCPCS: 10060; 96372; 99283; J1885

== ENCOUNTER 2023-02-04 20:11 | Emergency (ER) | payer MEDICAID ==
[2023-02-04] MEDS ORDERED: Ofloxacin 0.3% Ophth Soln 5 ML Bottle EARRT ONE (20:41)
[2023-02-04] MEDS ORDERED: Amoxicillin/Clavulanate K 875-125 MG Tab PO ONE (20:45)
[2023-02-04 21:00] VITALS: BP 149/92; PULSE 94
[2023-02-04] MEDS ORDERED: Ciprofloxacin 0.3% Ophth Soln 5 ML Bottle EARLF SCH (21:00)
== END 2023-02-04 21:00 | disposition home or self-care (01) ==
LOC: JD.ED 20:11
DX: H60.501 Unspecified acute noninfective otitis externa, right ear (principal); H66.002 Acute suppurative otitis media without spontaneous rupture of ear drum, left ear; I10 Essential (primary) hypertension; E66.9 Obesity, unspecified; Z68.27 Body mass index [BMI] 27.0-27.9, adult; Z86.16 Personal history of COVID-19
CPT/HCPCS: 99282; A9270